=== PATIENT | female | born 1995 | race Caucasian/White ===

== ENCOUNTER → 2021-11-06 11:43 | Outpatient (BNVA) | payer OTHER, SELFPAY | PROVIDERS: PCP Nurse Practitioner Family; Visit Provider Physician Assistant Surgical | DX: Z13.89 Encounter for screening for other disorder (principal) ==

== ENCOUNTER → 2021-11-08 14:05 | Outpatient (BNVA) | payer OTHER, SELFPAY | PROVIDERS: PCP Nurse Practitioner Family; Visit Provider Physician Assistant Surgical | DX: Z13.89 Encounter for screening for other disorder (principal) ==

== ENCOUNTER → 2021-11-29 16:30 | Outpatient (BNVA) | payer OTHER, SELFPAY | PROVIDERS: PCP Nurse Practitioner Family; Visit Provider Counselor Mental Health | DX: F33.0 Major depressive disorder, recurrent, mild (principal); E66.01 Morbid (severe) obesity due to excess calories | CPT/HCPCS: 90791 ==

== ENCOUNTER 2021-12-03 06:48 | Outpatient (REF) | payer OTHER, SELFPAY ==
--- NOTE | ~2021-12-03 | XR_ITS ---
EXAMINATION: XR CHEST CLINICAL INFORMATION: Obesity COMPARISON: None TECHNIQUE: 2 views of the chest were obtained. FINDINGS: No significant abnormality is noted involving the heart, lungs, mediastinum, bony thorax or soft tissues. XR/XR chest 2V IMPRESSION: Unremarkable examination.
--- NOTE | 2021-12-03 06:55 | ECG_ITS ---
Test Reason : e66.01 Blood Pressure : / mmHG Vent. Rate : 076 BPM Atrial Rate : 076 BPM P-R Int : 144 ms QRS Dur : 086 ms QT Int : 374 ms P-R-T Axes : 035 003 015 degrees QTc Int : 420 ms Normal sinus rhythm Normal ECG No previous ECGs available Referred By: Lasha Robles Electronically Signed By:KIEL SIDDIQUI
[2021-12-03 07:15] LABS: MANUAL DIFF FLAG NO
[2021-12-03 07:40] LABS: Basophils Percent Auto 0.5 % (0-2); Eosinophils Absolute Auto 0.2 X10*3/uL (0.0-0.4); Eosinophils Percent Auto 2.7 % (0-4); Hematocrit 40.7 % (37.0-47.0); Hemoglobin 13.6 g/dl (12.0-16.0); Imm Gran Abs Auto 0.04 X10*3/uL (0.00-0.03); Imm Gran Pct Auto 0.5 % (0.0-0.4); Lymphocytes Absolute Auto 2.1 X10*3/uL (1.2-4.9); Lymphocytes Percent Auto 27.1 % (20-40); Mean Corpuscular HGB Conc 33.4 g/dl (31.0-35.0); Mean Corpuscular Hemoglobin 29.9 pg (27.0-33.0); Mean Corpuscular Volume 89.5 fL (80.0-98.0); Mean Platelet Volume 11.2 fL (9.4-12.3); Monocytes Absolute Auto 0.5 X10*3/uL (0.1-1.2); Monocytes Percent Auto 6.9 % (2-11); Neutrophils Absolute Auto 4.8 x10*3/uL (2.0-8.3); Neutrophils Percent Auto 62.3 % (45-73); Platelet Count 211 X10*3/uL (160-400); Red Blood Count 4.55 X10*6/uL (4.20-5.50); Red Cell Distribution Width 13.3 % (11.0-16.0); White Blood Count 7.7 X10*3/uL (4.8-10.8)
[2021-12-03 07:57] LABS: Estimated Average Glucose 88 mg/dL; Hemoglobin A1c % 4.7 %
[2021-12-03 08:45] LABS: Ferritin 97 ng/mL (10-122); TSH reflex Free T4 8.83 uIU/mL (0.32-4.0); Vitamin D 25-OH Total 13.1 ng/mL (>30)
[2021-12-03 08:46] LABS: Alanine Aminotransferase 34 U/L (0-31); Alkaline Phosphatase 85 U/L (39-117); Anion Gap 13 (12-20); Aspartate Amino Transferase 19 U/L (5-31); Bilirubin Total 0.5 mg/dL (0.0-1.0); Blood Urea Nitrogen 13 mg/dL (9-16); C Reactive Protein 0.98 mg/dL (< or = 0.50); Calcium 9.5 mg/dL (8.4-10.2); Carbon Dioxide 25 mmol/L (22-29); Chloride 106 mmol/L (96-108); Cholesterol 136 mg/dL; Estimated Glomerular Filt Rate > 60; Glucose Random 67 mg/dL (60-115); HDL Cholesterol 34 mg/dL; Iron 51 mcg/dL (30-160); LDL Cholesterol Calculated 84 mg/dl; Percent Iron Saturation 17 % (15-50); Potassium 4.2 mmol/L (3.3-5.1); Sodium 140 mmol/L (135-145); Total Iron Binding Capacity 299 mcg/dL (228-428); Total Protein 6.9 g/dL (6.5-8.0); Triglycerides 91 mg/dL; Unsaturated Iron Binding 248 ug/dL
[2021-12-03 09:19] LABS: Free T4 (Free Thyroxine) 0.92 ng/dL (0.71-1.85); Insulin 14 uU/mL (2-29)
[2021-12-03 09:27] LABS: Folate 11.9 ng/mL (> or = 4.0); Vitamin B12 407 pg/mL (200-900)
[2021-12-04 10:43] LABS: H Pylori Breath Test Negative (Negative)
[2021-12-04 18:01] LABS: Calcium (PTHI) 9.2 mg/dL (8.6-10.2); PTHI 71 pg/mL (16-77)
[2021-12-06 04:06] LABS: Zinc 95 mcg/dL (60-130)
[2021-12-08 00:52] LABS: Vitamin A 34 mcg/dL (38-98)
[2021-12-08 13:26] LABS: Vitamin B1 9 nmol/L (8-30)
== END 2021-12-03 06:49 | disposition home or self-care (01) ==
LOC: HO.XRAY 06:48
PROVIDERS: PCP Nurse Practitioner Family; Visit Provider Physician Assistant Surgical
DX: Z01.818 Encounter for other preprocedural examination (principal); E66.01 Morbid (severe) obesity due to excess calories
CPT/HCPCS: 36415; 71046; 80053; 80061; 82306; 82607; 82728; 82746; 83013; 83036; 83525; 83540; 83970; 84425; 84439; 84443; 84590; 84630; 85025; 86140; 93005

== ENCOUNTER → 2021-12-10 08:28 | Outpatient (BNVA) | payer OTHER, SELFPAY | PROVIDERS: PCP Nurse Practitioner Family; Visit Provider Dietitian, Registered | DX: E66.01 Morbid (severe) obesity due to excess calories (principal) | CPT/HCPCS: 97802 ==

== ENCOUNTER → 2021-12-13 16:45 | Outpatient (BNVA) | payer OTHER, SELFPAY | PROVIDERS: PCP Nurse Practitioner Family; Visit Provider Counselor Mental Health | DX: Z13.89 Encounter for screening for other disorder (principal) ==

== ENCOUNTER 2022-01-07 09:03 | Outpatient (REF) | payer OTHER, SELFPAY | END 2022-01-07 09:04 | disposition home or self-care (01) | LOC: HO.XRAY 09:03 | PROVIDERS: Visit Provider Surgery | DX: Z13.89 Encounter for screening for other disorder (principal) ==

== ENCOUNTER 2022-01-07 09:17 | Outpatient (REF) | payer OTHER, SELFPAY ==
--- NOTE | ~2022-01-07 | US_ITS ---
EXAMINATION: US COMPLETE ABDOMEN WITH LIVER ELASTOGRAPHY CLINICAL INFORMATION: Morbid to severe obesity. COMPARISON: None. TECHNIQUE: Real-time imaging of the abdominal viscera. Noninvasive ultrasound liver fibrosis assessment is performed using Kameron ElastPQ point quantification shear wave elastography (2D-SWE) with a C5-2 MHz transducer. Multiple elastography samples are obtained. FINDINGS: PANCREAS: The visualized pancreatic head and body are normal in appearance. The body and the tail of the pancreas is obscured from visualization by the overlying bowel gas. ABDOMINAL AORTA: The proximal, middle, and distal aortic segments are normal in caliber. The abdominal aorta is limited in visualization. INFERIOR VENA CAVA: Visualized portions are normal. LIVER: The liver demonstrates normal size, contour and echogenicity. No focal lesion or intrahepatic biliary duct dilatation. The right lobe measures 14.0 cm in length. The left lobe measures 10.4 cm in length. Portal flow is hepatopedal. Shear wave liver elastography median stiffness is 1.54 m/s (reference: normal median stiffness is 1.3 m/s or less). IQR/median stiffness to assess sampling precision is 0.09 (reference: good quality data set is IQR/median stiffness of 0.15 or less). GALLBLADDER: Normal. The gallbladder is physiologically distended without evidence of stones, sludge, polyps, wall thickening or pericholecystic fluid. COMMON BILE DUCT: Normal in caliber measuring 0.3 cm in diameter. RIGHT KIDNEY: Normal. No hydronephrosis. No renal calculi or focal parenchymal lesions. The kidney measures 10.3 cm in maximum dimension. LEFT KIDNEY: Normal. No hydronephrosis. No renal calculi or focal parenchymal lesions. The kidney measures 11.5 cm in maximum dimension. SPLEEN: Normal. The spleen measures 11.2 cm in maximum dimension. FREE FLUID: None. US/US abdomen comp w elastography IMPRESSION: 1. Hepatic steatosis without focal lesion. Rest of the abdominal ultrasound is unremarkable. Suboptimal visualization of the abdominal aorta and body and the tail of pancreas. 2. Liver elastography: Median liver stiffness 1.54 m/s corresponding to cACLD (ruled out ). REFERENCE: Society of Radiologists in Ultrasound Liver Stiffness Thresholds (2020): LIVER STIFFNESS THRESHOLDS: *Liver Stiffness equal or less than 1.3 m/s: High probability of being normal. *Liver Stiffness less than 1.7 m/s: In the absence of other known clinical signs, rules out compensated advanced chronic liver disease. *Liver Stiffness 1.7-2.1 m/s: Suggestive of compensated advanced chronic liver disease but need further test for confirmation. *Liver Stiffness over 2.1 m/s: Rules in compensated advanced chronic liver disease. *Liver Stiffness over 2.4 m/s: Suggestive of clinically significant portal hypertension. QUALITY OF DATA SET: *IQR/Median value equal or less than 0.15 implies a quality data set. *IQR/Median value over 0.15 implies a poor quality data set. SIGNIFICANT CHANGE FROM PRIOR EXAM: Significant change if liver stiffness measurement is 10% or greater from prior exam. OTHER CONSIDERATIONS: The stage of liver fibrosis may be overestimated in the setting of acute hepatitis, liver inflammation, elevated liver function tests, hepatic vascular congestion, obstructive cholestasis, non-fasting state, and infiltrative diseases such as amyloidosis and lymphoma. In some patients with NAFLD, the liver stiffness thresholds for compensated advanced chronic liver disease may be lower. In causes other than viral hepatitis and NAFLD, liver stiffness thresholds are not well established.
--- NOTE | ~2022-01-07 | FL_ITS ---
EXAMINATION: XR FLUOROSCOPY UPPER GI WITH AIR CLINICAL INFORMATION: Obesity COMPARISON: None TECHNIQUE: Upper GI was performed using thin and thick barium and effervescent granules FINDINGS: Esophageal motility is normal. No hernia or reflux is seen. The stomach and duodenum are normal-appearing. No fold thickening, mass, ulcer or stricture is seen. FLUOROSCOPY TIME: 0.6 minutes DOSE AREA PRODUCT: 6 starks per centimeter squared. 18 saved fluoroscopic images. FL/FL upper GI w air IMPRESSION: Unremarkable examination.
== END 2022-01-07 09:18 | disposition home or self-care (01) ==
LOC: HO.US 09:17
PROVIDERS: Visit Provider Surgery
DX: Z01.818 Encounter for other preprocedural examination (principal); E66.01 Morbid (severe) obesity due to excess calories
CPT/HCPCS: 74246; 76705; 76981

== ENCOUNTER 2022-04-19 07:00 | Outpatient (REF) | payer OTHER, SELFPAY ==
[2022-04-19 07:20] LABS: MANUAL DIFF FLAG NO
[2022-04-19 07:48] LABS: Basophils Absolute Auto 0.1 X10*3/uL (0.0-0.2); Basophils Percent Auto 0.5 % (0-2); Eosinophils Absolute Auto 0.3 X10*3/uL (0.0-0.4); Eosinophils Percent Auto 2.8 % (0-4); Hematocrit 40.8 % (37.0-47.0); Hemoglobin 12.9 g/dl (12.0-16.0); Imm Gran Abs Auto 0.02 X10*3/uL (0.00-0.03); Imm Gran Pct Auto 0.2 % (0.0-0.4); Lymphocytes Absolute Auto 2.6 X10*3/uL (1.2-4.9); Mean Corpuscular HGB Conc 31.6 g/dl (31.0-35.0); Mean Corpuscular Hemoglobin 28.2 pg (27.0-33.0); Mean Corpuscular Volume 89.1 fL (80.0-98.0); Mean Platelet Volume 10.9 fL (9.4-12.3); Monocytes Absolute Auto 0.6 X10*3/uL (0.1-1.2); Neutrophils Absolute Auto 5.7 x10*3/uL (2.0-8.3); Neutrophils Percent Auto 62.5 % (45-73); Platelet Count 267 X10*3/uL (160-400); Red Blood Count 4.58 X10*6/uL (4.20-5.50); Red Cell Distribution Width 13.5 % (11.0-16.0); White Blood Count 9.2 X10*3/uL (4.8-10.8)
[2022-04-19 07:53] LABS: Prothrombin Time 11.3 SEC (10.0-13.1)
[2022-04-19 07:56] LABS: Partial Thromboplastin Time 30.5 SEC (26.0-36.4)
[2022-04-19 07:59] LABS: Estimated Average Glucose 94 mg/dL; Hemoglobin A1c % 4.9 %
[2022-04-19 08:15] LABS: Alanine Aminotransferase 17 U/L (0-31); Albumin Level 3.7 g/dL (3.5-5.0); Alkaline Phosphatase 76 U/L (39-117); Anion Gap 13 (12-20); Aspartate Amino Transferase 18 U/L (5-31); Bilirubin Total 0.3 mg/dL (0.0-1.0); Blood Urea Nitrogen 16 mg/dL (9-16); Calcium 8.9 mg/dL (8.4-10.2); Carbon Dioxide 26 mmol/L (22-29); Chloride 105 mmol/L (96-108); Cholesterol 182 mg/dL; Estimated Glomerular Filt Rate > 60; Glucose Random 87 mg/dL (60-115); HDL Cholesterol 47 mg/dL; LDL Cholesterol Calculated 110 mg/dl; Potassium 4.4 mmol/L (3.3-5.1); Sodium 140 mmol/L (135-145); Total Protein 6.5 g/dL (6.5-8.0); Triglycerides 129 mg/dL
[2022-04-19 08:19] LABS: Insulin 18 uU/mL (2-29); TSH reflex Free T4 5.46 uIU/mL (0.32-4.0)
[2022-04-19 09:16] LABS: Free T4 (Free Thyroxine) 0.78 ng/dL (0.71-1.85)
== END 2022-04-19 07:01 | disposition home or self-care (01) ==
LOC: HO.LAB 07:00
PROVIDERS: PCP Nurse Practitioner Family; Visit Provider Surgery
DX: E66.9 Obesity, unspecified (principal); Z68.38 Body mass index [BMI] 38.0-38.9, adult; E03.9 Hypothyroidism, unspecified
CPT/HCPCS: 36415; 80053; 80061; 83036; 83525; 84439; 84443; 85025; 85610; 85730; 86140

== ENCOUNTER 2022-04-25 06:07 | Inpatient (IN) | payer OTHER, SELFPAY ==
[2022-04-16 09:29] VITALS: BMI 38.4
--- NOTE | 2022-04-19 22:43 | MHC.SHP ---
Pre-Procedural Eval Section A Date of Service: 04/19/22 The patient is an INPATIENT: No The History & Physical has been completed within 30 days and I have reviewed it.: Yes Section B Chief Complaint: obesity Relevant Family History (Specify if Yes): No Relevant Social History: None Present Medications: None Medical History: No relevant PMH History of Previous Operations: No relevant previous surgery Allergies: Allergies Allergy/AdvReac Type Severity Reaction Status Date / Time No Known Allergies Allergy Verified 04/17/22 11:07 Review of Systems Sugical H&P ROS: Negative: Constitution, Cardiovascular, Respiratory, Neurological, Psychiatric, Hem-Onc, Allergic/Immunologic, Gastrointestinal, Genitourinary, Musculoskeletal, Integumentary, Endocrine and Eyes/Ears/Nose/Throat Exam Surgical H&P Exam: Normal: HEENT, Normal: Heart, Normal: Lungs, Normal: Extremities, Normal: Abdomen, Normal: Skin and Normal: Neurological Plan Diagnosis/Plan: Unchanged I have reviewed the history and physical and performed a pertinent physical examination on my patient. No changes have occurred unless specified.
--- NOTE | 2022-04-24 10:48 | HO.ANESPROP2 ---
Documented by User: Tami Larson NP 04/24/22 10:49 HPI - Anesthesia Eval Consult details Narrative: 26yo F for Gastrectomy Sleeve,EGD,poss diaphragmatic hernia,poss ventral hernia,poss open, PMFSH Active Problems Active Problems: All Active Problems (Updated 04/17/22 @ 11:03 by Gildardo Brush MD) BMI 38.0-38.9,adult (Acute) Morbid obesity (Acute) Hypothyroid (Acute) Depression (Acute) Anxiety (Acute) Major depressive disorder, recurrent, mild (Acute) Vitamin A deficiency (Acute) Vitamin B12 deficiency (Acute) Obesity (BMI 30-39.9) (Acute) Past Medical History Medical History (Updated 04/25/22 @ 10:11 by Gildardo Brush MD) Anxiety and depression Back pain History of kidney stones Hypothyroid Obesity Family History Family History Mother Obesity Father Diabetes Stroke Brother No problems noted. Brother No problems noted. Brother No problems noted. Surgical History Surgical History (Updated 04/25/22 @ 10:10 by Mariangel Wise PA-C) History of lithotripsy Hx of oral surgery Social History Social History Are you a primary health care law specialist to a significant other at home: No Do you presently have visiting nurse or other home services: No Alcohol intake: former Patient Tobacco Use Status: Never used Tobacco Use of substances other than those prescribed or required for medical reasons: No Currently Displaying Signs/Symptoms of Drug Intoxication Withdrawal: No Have you been hit, kicked, punched, or otherwise hurt by someone within the past year? If so, by whom?: No Are you DNR?: No Advance Directives: No Advance Directives Information Provided: Yes (Mailed w/ pre-op instructions) Advance Directives on File: No Recently lost weight without trying: No How much weight loss: 34pounds or more Eating poorly because of decreased appetite: No Nutrition screen score: 4 Nutrition Risks: No Nutritional Risk Patient : No FDLMP: 3 weeks ago : No Poor oral hygiene: No (Capped teeth- Front upper 4) Meds Allergies Allergy/AdvReac Type Severity Reaction Status Date / Time No Known Allergies Allergy Verified 04/17/22 11:07 Home Medications Medication Instructions Recorded Confirmed Last Taken Type bupropion HCl 150 mg 24 hr tablet, 150 mg PO DAILY 11/06/21 04/17/22 04/23/22 History extended release sertraline 25 mg tablet 25 mg PO DAILY 11/06/21 04/17/22 04/23/22 History ethynodiol diacetate-ethinyl 1 tab PO DAILY 02/04/22 04/17/22 04/17/22 History estradiol 1 mg-50 mcg tablet (Kelnor) levothyroxine 100 mcg tablet 1 tab PO DAILY 04/25/22 04/25/22 04/25/22 History Exam Exam Date and Time: April 24, 2022 1048 Height,Weight and Vital Signs: Height 5 ft 4 in Weight 101.605 kg Pertinent Lab Results Pertinent Lab Results: Laboratory Tests 04/19/22 07:15 Blood Type A Positive Antibody Screen NEGATIVE Laboratory Tests 04/19/22 04/19/22 07:19 07:19 WBC 9.2 Hgb 12.9 Hct 40.8 Plt Count 267 D Sodium 140 Potassium 4.4 Chloride 105 Carbon Dioxide 26 BUN 16 Creatinine 0.86 Narrative Narrative: EKG 11/2021 Vent. Rate : 076 BPM ? ? Atrial Rate : 076 BPM ?? P-R Int : 144 ms? QRS Dur : 086 ms ? ? QT Int : 374 ms ? ? ? P-R-T Axes : 035 003 015 degrees ?? QTc Int : 420 ms ? Normal sinus rhythm Normal ECG No previous ECGs available Assessment and Plan Assessment Anesthesia Assessment: Chart Reviewed Documented by User: Timothy Eli MD 04/25/22 15:41 [facility] Past Medical History Medical History (Updated 04/25/22 @ 10:11 by Gildardo Brush MD) Anxiety and depression Back pain History of kidney stones Hypothyroid Obesity Functional capacity: independent ambulation Family History Family History Mother Obesity Father Diabetes Stroke Brother No problems noted. Brother No problems noted. Brother No problems noted. Family history of problems with anesthesia: No Surgical History Surgical History (Updated 04/25/22 @ 10:10 by Mariangel Wise PA-C) History of lithotripsy Hx of oral surgery History of Problems with Anesthesia: No Social History Social History Are you a primary health care law specialist to a significant other at home: No Do you presently have visiting nurse or other home services: No Alcohol intake: former Patient Tobacco Use Status: Never used Tobacco Use of substances other than those prescribed or required for medical reasons: No Currently Displaying Signs/Symptoms of Drug Intoxication Withdrawal: No Have you been hit, kicked, punched, or otherwise hurt by someone within the past year? If so, by whom?: No Are you DNR?: No Advance Directives: No Advance Directives Information Provided: Yes (Mailed w/ pre-op instructions) Advance Directives on File: No Recently lost weight without trying: No How much weight loss: 34pounds or more Eating poorly because of decreased appetite: No Nutrition screen score: 4 Nutrition Risks: No Nutritional Risk Patient : No FDLMP: 3 weeks ago : No Poor oral hygiene: No (Capped teeth- Front upper 4) Meds Allergies Allergy/AdvReac Type Severity Reaction Status Date / Time No Known Allergies Allergy Verified 04/17/22 11:07 Home Medications Medication Instructions Recorded Confirmed Last Taken Type bupropion HCl 150 mg 24 hr tablet, 150 mg PO DAILY 11/06/21 04/17/22 04/23/22 History extended release sertraline 25 mg tablet 25 mg PO DAILY 11/06/21 04/17/22 04/23/22 History ethynodiol diacetate-ethinyl 1 tab PO DAILY 02/04/22 04/17/22 04/17/22 History estradiol 1 mg-50 mcg tablet (Kelnor) levothyroxine 100 mcg tablet 1 tab PO DAILY 04/25/22 04/25/22 04/25/22 History Exam Airway Mallampati Class: III TM Dist: >3cm Neck ROM: Full Loose/Missing/Broken Teeth: Yes (Caps ) Heart: S1,S2 Lungs: b/l breath sounds Assessment and Plan Assessment Anesthesia Assessment: Anesthesia Plan Discussed Final Anesthetic Review Family History of Problems with Anesthesia: No History of Problems with Anesthesia: No NPO: Yes ASA Class: II Final Preanesthetic Review: Meds/Allgs Chart Reviewed, Consent Obtained/Reviewed and Anes Risks/Benef Reviewed Patient Risk: Intermediate Procedure Risk: Intermediate Anesthetic Plan Anesthetic Plan: GA Disposition: Standard PACU
[2022-04-25] VITALS (11 sets, daily range): BP systolic 121–151; BP diastolic 59–99; PULSE 65–81; RESP 15–18; TEMP 36.1–37.2; O2SAT 97–100
[2022-04-25 06:27] LABS: UPreg QC Valid YES; Urine Pregnancy NEGATIVE (NEGATIVE)
--- OUTSIDE RECORDS SUMMARY | 2022-04-25 06:36 | XMS_ITS | Continuity of Care Document ---
:1995 Author Organization [facility] Adult Address [address] [place] [address]- Care Team Providers Name Role Phone Aaron CAREY, Olga Dos Santos Primary Care Physician Encounter [facility] Date(s): 02/25/22 - 03/04/22 [facility] Adult [address] [place] [address]- Encounter Diagnosis Depression, major, recurrent (Discharge Diagnosis) - 02/25/22 Hypothyroidism (Discharge Diagnosis) - 02/25/22 Attending Physician: Olga Walker NP Allergies, Adverse Reactions, Alerts No Known Allergies Immunizations Given and Recorded Vaccine Date Status Refusal Reason SARS-CoV-2 (COVID-19) mRNA-1273 vaccine 08/08/21 Recorded SARS-CoV-2 (COVID-19) mRNA-1273 vaccine1 10/22/20 Recorde d SARS-CoV-2 (COVID-19) mRNA BNT-162b2 vac2 09/22/20 Record ed influenza virus vaccine, inactivated 05/11/18 Given tetanus/diphtheria/pertussis, acel(Tdap) 02/29/16 Given tetanus/diphtheria/pertussis, acel(Tdap)3 02/27/06 Record ed Meningococcal Conjugate Vaccine4 03/03/07 Recorded Measles/Mumps/Rubella Virus Vaccine5 03/02/98 Recorded Measles/Mumps/Rubella Virus Vaccine6 03/14/95 Recorded Varicella Virus Vaccine7 10/27/97 Recorded hepatitis B pediatric vaccine8 04/08/94 Recorded hepatitis B pediatric vaccine9 93 Recorded hepatitis B pediatric kfyitol06 93 Recorded hepatitis B adult djnawju86, 12 93 Recorded 1Result Comment: left deltoid lot [id number] exp 03-26-2021 [id number] Comment: Covid-19 mRNA lot [id number] Moderna exp [id number] [facility] left [id number] Comment: [02/14/2015] [place] [id number] Comment: [02/14/2015] [place] [id number] Comment: [02/14/2015] [place] [id number] Comment: [02/14/2015] [place] [id number] Comment: [02/14/2015] [place] [id number] Comment: [02/14/2015] [place] PEDI9 Result Comment: [02/14/2015] [place] [id number] Comment: [02/14/2015] [place] [id number] Comment: ENTERED IN [id number] Comment: [02/14/2015] [facility] Medications Kelnor 1 mg-35 mcg oral tablet See Instructions, TAKE 1 TABLET BY MOUTH EVERY DAY, # 84 tablet, 4 Refills, 01/09/22 14:04:00 EDT, [facility]/pharmacy #[id number], TAKE 1 TABLET BY MOUTH EVERY DAY, 162, cm, 01/09/22 13:51:00 EDT, Height, 112.8, kg, 12/03/21 10:32:00 EDT, Dry Weight Start Date: 01/09/22 Status: Orderedlevothyroxine 0.1 mg oral tablet 1 tablet, By Mouth, Daily, X7 WEEK(S. REPEAT TSH LEVEL IN 6 WEEKS, # 30 tablet, 1 Refills, [facility] [id number], 162, cm, 01/09/22 13:51:00 EDT, Height, 112.8, kg, 12/03/21 10:32:00 EDT, Dry Weight Start Date: 02/11/22 Status: Orderedsertraline 25 mg oral tablet 1 tablet, By Mouth, Daily, # 90 tablet, 0 Refills, [facility] STORE [id number], 162, cm, 01/09/22 13:51:00 EDT, Height, 112.8, kg, 12/03/21 10:32:00 EDT, Dry Weight Start Date: 01/22/22 Status: OrderedWellbutrin XL 150 mg/24 hours oral tablet, extended release 1 tablet = 150 mg, By Mouth, Every 24 hours, repalce 300mg, # 30 tablet, 6 Refills, Maintenance, 02/25/22 8:22:00 EDT, ER Tablet, [id number], Partial fill upon patient request if the prescription is for a schedule II opioid drug., 162, cm, .. Start Date: 02/25/22 Status: Ordered Problem List Condition Effective Dates Status Health Status Informant Obesity with body mass index of 30.0 - Active 39.9(Confirmed) Hypothyroidism(Confirmed) Active Surveillance for control, oral Active contraceptives(Confirmed) PCOS (polycystic ovarian Active syndrome)(Confirmed) Depression, major, Active recurrent(Confirmed) Amenorrhea, secondary(Confirmed) Active Severe obesity(Confirmed) Active Diagnosis Diagnosis Type Effective Dates Health Clinical Infor mant Status Service Depression, major, Discharge 02/25/22 recurrent Diagnosis Hypothyroidism Discharge 02/25/22 Diagnosis Vital Signs Most recent to oldest [Reference Range]: 1 Height 162 cm (02/25/22 7:59 AM) Social History Social History Type Response Smoking Status Never smoker entered on: 01/25/15 Sex
--- OUTSIDE RECORDS SUMMARY | 2022-04-25 06:36 | XMS_ITS | Continuity of Care Document ---
:1995 Author Organization [facility] Adult Address [address] [place] [address]- Care Team Providers Name Role Phone Aaron CAREY, Olga Dos Santos Primary Care Physician Encounter [facility] Date(s): 08/17/20 - 09/16/20 [facility] Adult [address] [place] [address]- Attending Physician: Romana Ricardo Admitting Physician: AdmRomana bradley Referring Physician: AdmtrRomana Allergies, Adverse Reactions, Alerts Substance Reaction Severity Status NKA Active Immunizations Given and Recorded Vaccine Date Status Refusal Reason influenza virus vaccine, inactivated 05/11/18 Given tetanus/diphtheria/pertussis, acel(Tdap) 02/29/16 Given tetanus/diphtheria/pertussis, acel(Tdap)1 02/27/06 Record ed Meningococcal Conjugate Vaccine2 03/03/07 Recorded Measles/Mumps/Rubella Virus Vaccine3 03/02/98 Recorded Measles/Mumps/Rubella Virus Vaccine4 03/14/95 Recorded Varicella Virus Vaccine5 10/27/97 Recorded hepatitis B pediatric vaccine6 04/08/94 Recorded hepatitis B pediatric vaccine7 93 Recorded hepatitis B pediatric vaccine8 93 Recorded hepatitis B adult vaccine9, 10 93 Recorded 1Result Comment: [02/14/2015] [facility] [id number] Comment: [02/14/2015] [facility] [id number] Comment: [02/14/2015] DRE [id number] Comment: [02/14/2015] [facility] [id number] Comment: [02/14/2015] DRE [id number] Comment: [02/14/2015] DRE MILLERI7Result Comment: [02/14/2015] DRE MILLERI8Result Comment: [02/14/2015] DRE MERIDA9Result Comment: ENTERED IN [id number] Comment: [02/14/2015] DRE MERIDA Medications buPROPion 150 mg/24 hours (XL) oral tablet, extended release 1 tablet = 150 mg, By Mouth, Every 24 hours, # 30 tablet, 6 Refills, Soft Stop, 07/18/20 12:48:00 EST, [id number], 1 tablet By Mouth Every 24 hours,x30 days, 162, cm, 02/19/19 13:26:00 EDT, Height Start Date: 07/18/20 Stop Date: 02/13/21 Status: Orderedlevothyroxine 0.088 mg oral tablet 1 tablet, By Mouth, Daily, schedule physical with Olga Walker [employer] for refills, # 30 tablet, 0 Refills, Maintenance, 07/18/20 16:18:00 EST, [id number], 162, cm, 02/19/19 13:26:00 EDT, Height Start Date: 07/18/20 Stop Date: 10/24/20 Status: Orderedsertraline 25 mg oral tablet 1 tablet = 25 mg, By Mouth, Daily, # 30 tablet, 6 Refills, Soft Stop, 07/18/20 12:48:00 EST, [id number], 162, cm, 02/19/19 13:26:00 EDT, Height Start Date: 07/18/20 Stop Date: 02/13/21 Status: Ordered Problem List Condition Effective Dates Status Health Status Informant Obesity with body mass index of 30.0 - Active 39.9(Confirmed) Hypothyroidism(Confirmed) Active Kidney stone(Confirmed) Active Surveillance for control, oral Active contraceptives(Confirmed) PCOS (polycystic ovarian Active syndrome)(Confirmed) Depression, major, Active recurrent(Confirmed) Amenorrhea, secondary(Confirmed) Active Social History Social History Type Response Smoking Status Never smoker entered on: 01/25/15 Sex
--- OUTSIDE RECORDS SUMMARY | 2022-04-25 06:36 | XMS_ITS | Continuity of Care Document ---
:1995 Author Organization [facility] Adult Address [address] [place] [address]- Care Team Providers Name Role Phone Aaron CAREY, Olga Dos Santos Primary Care Physician Encounter [facility] Date(s): 10/24/21 - 10/31/21 [facility] Adult [address] [place] [address]- Encounter Diagnosis Depression, major, recurrent (Discharge Diagnosis) - 10/24/21 Hypothyroidism (Discharge Diagnosis) - 10/24/21 Attending Physician: Olga Walker NP Referring Physician: Alvarez Sorenson MD Allergies, Adverse Reactions, Alerts No Known Allergies [...] pediatric vaccine9 93 Recorded hepatitis B pediatric [id number] 93 Recorded hepatitis B adult egteyyo31, 12 93 Recorded 1Result Comment: left deltoid lot [id number] exp 03-26-2021 [id number] Comment: Covid-19 mRNA lot [id number] Moderna exp [id number] [facility] left [id number] Comment: [02/14/2015] [place] [id number] Comment: [02/14/2015] [place] [id number] Comment: [02/14/2015] [place] [id number] Comment: [02/14/2015] [place] [id number] Comment: [02/14/2015] [place] [id number] Comment: [02/14/2015] [place] [facility]I9 Result Comment: [02/14/2015] [place] [id number] Comment: [02/14/2015] [place] [id number] Comment: ENTERED IN [id number] Comment: [02/14/2015] [facility] Medications buPROPion 150 mg/24 hours (XL) oral tablet, extended release 1 tablet = 150 mg, By Mouth, Every 24 hours, # 30 tablet, 6 Refills, Soft Stop, 08/24/21 7:17:00 EST, [id number], 1 tablet By Mouth Every 24 hours,x30 days, 162, cm, 08/24/21 7:00:00 EST, Height Start Date: 08/24/21 Stop Date: 03/22/22 Status: Orderedlevothyroxine 75 mcg (0.075 mg) oral tablet 1 tablet = 75 mcg, By Mouth, Daily, repalce 50mcg, # 30 tablet, 1 Refills, Maintenance, 10/24/21 7:19:00 EDT, Tablet, [id number], Partial fill upon patient request if the prescription is for a schedule II opioid drug., 162, cm, 10/24/21 7:02:0... Start Date: 10/24/21 Stop Date: 12/23/21 Status: Orderedsertraline 25 mg oral tablet 1 tablet = 25 mg, By Mouth, Daily, # 30 tablet, 2 Refills, Maintenance, 10/24/21 7:18:00 EDT, Tablet, [id number], Partial fill upon patient request if the prescription is for a schedule II opioid drug., 162, cm, 10/24/21 7:02:00 EDT, Height Start Date: 10/24/21 Status: Ordered Problem List Condition Effective Dates Status Health Status Informant Obesity with body mass index of 30.0 - Active 39.9(Confirmed) Hypothyroidism(Confirmed) Active Kidney stone(Confirmed) Active Surveillance for control, oral Active contraceptives(Confirmed) PCOS (polycystic ovarian Active syndrome)(Confirmed) Depression, major, Active recurrent(Confirmed) Amenorrhea, secondary(Confirmed) Active Severe obesity(Confirmed) Active Diagnosis Diagnosis Type Effective Dates Health Clinical Infor mant Status Service Depression, major, Discharge 10/24/21 recurrent Diagnosis Hypothyroidism Discharge 10/24/21 Diagnosis Vital Signs Most recent to oldest [Reference Range]: 1 Height 162 cm (10/24/21 7:02 AM) Social History Social History Type Response Smoking Status Never smoker entered on: 01/25/15 Sex
--- OUTSIDE RECORDS SUMMARY | 2022-04-25 06:36 | XMS_ITS | Continuity of Care Document ---
:1995 Author Organization [facility] Address [address] [place] [address]- Care Team Providers Name Role Phone Aaron CAREY, Olga Dos Santos Primary Care Physician [facility]counter [facility] Date(s): 12/03/21 - 01/02/22 [facility] [address] [place], [place] [address] Allergies, Adverse Reactions, Alerts No Known Allergies [...] pediatric vaccine9 93 Recorded hepatitis B pediatric crjgnot33 93 Recorded hepatitis B adult uvdgplt54, 12 93 Recorded 1Result Comment: left deltoid lot [id number] exp 03-26-2021 sfa9Fkdaeb Comment: Covid-19 mRNA lot [id number] Moderna exp [facility] left aesklzc4Ndafsu Comment: [02/14/2015] [place] PFMZ4Gyrvfp Comment: [02/14/2015] [place] QYIJ0Obifqh Comment: [02/14/2015] [place] KAIM0Zcfwzy Comment: [02/14/2015] [place] NHWX0Cagwfc Comment: [02/14/2015] [place] INNM8Cqrtlv Comment: [02/14/2015] [place] PEDI9 Result Comment: [02/14/2015] [place] GOLE65Looufy Comment: [02/14/2015] [place] SGMP42Rbbqra Comment: ENTERED IN BYMCY85Rxtxip Comment: [02/14/2015] [facility] Medications Kelnor 1 mg-35 mcg oral tablet See Instructions, TAKE 1 TABLET BY MOUTH EVERY DAY, # 28 tablet, 0 Refills, [id number], 28, TAKE 1 TABLET BY MOUTH EVERY DAY, 162, cm, 12/26/21 8:04:00 EDT, Height, 112.8, kg, 12/03/21 10:32:00 EDT, Dry Weight Start Date: 12/30/21 Status: Orderedlevothyroxine 0.088 mg oral tablet 1 tablet = 88 mcg, By Mouth, Daily, # 49 tablet, 0 Refills, Maintenance, 12/26/21 7:22:00 EDT, [id number], Partial fill upon patient request if the prescription is for a schedule II opioid drug., 162, cm, 12/26/21 7:02:00 EDT, Height, 112.8, k... Start Date: 12/26/21 Stop Date: 02/13/22 Status: Orderedsertraline 25 mg oral tablet 1 tablet = 25 mg, By Mouth, Daily, # 30 tablet, 2 Refills, Maintenance, 10/24/21 7:18:00 EDT, Tablet, [id number], Partial fill upon patient request if the prescription is for a schedule II opioid drug., 162, cm, 10/24/21 7:02:00 EDT, Height Start Date: 10/24/21 Status: OrderedWellbutrin XL 300 mg/24 hours oral tablet, extended release 1 tablet = 300 mg, By Mouth, Every 24 hours, repalce 150mg, # 30 tablet, 1 Refills, Maintenance, 12/26/21 7:26:00 EDT, [facility]/pharmacy #[id number], Partial fill upon patient request if the prescription is for aschedule II opioid drug., 162, cm, 12/26/21 7:02:... Start Date: 12/26/21 Stop Date: 02/24/22 Status: Ordered Problem List Condition Effective Dates Status Health Status Informant Obesity with body mass index of 30.0 - Active 39.9(Confirmed) Hypothyroidism(Confirmed) Active Kidney stone(Confirmed) Active Surveillance for control, oral Active contraceptives(Confirmed) PCOS (polycystic ovarian Active syndrome)(Confirmed) Depression, major, Active recurrent(Confirmed) Amenorrhea, secondary(Confirmed) Active Severe obesity(Confirmed) Active Social History Social History Type Response Smoking Status Never smoker entered on: 01/25/15 Sex
--- OUTSIDE RECORDS SUMMARY | 2022-04-25 06:36 | XMS_ITS | Continuity of Care Document ---
:1995 Author Organization [facility] Address [address] [place] [address]- Care Team Providers Name Role Phone Aaron CAREY, Olga Dos Santos Primary Care Physician Encounter [facility] Date(s): 01/16/22 - 02/15/22 [facility] [address] [place] [address]- Allergies, Adverse Reactions, Alerts No Known Allergies [...] pediatric vaccine9 93 Recorded hepatitis B pediatric awdbkws66 93 Recorded hepatitis B adult dsoxfgm38, 12 93 Recorded 1Result Comment: left deltoid lot [id number] exp 03-26-2021 ffl7Fdiyim Comment: Covid-19 mRNA lot [id number] Moderna exp [id number] [facility] left vrhoqhk1Unhguz Comment: [02/14/2015] [place] MILLERI4Result Comment: [02/14/2015] [place] QOHA8Oyjutd Comment: [02/14/2015] [place] LLEN7Puhmrq Comment: [02/14/2015] [place] RVZW3Jjisns Comment: [02/14/2015] [place] PVPL4Wnxpuw Comment: [02/14/2015] [place] [facility]9 Result Comment: [02/14/2015] [place] AMTY95Zjpopb Comment: [02/14/2015] [place] XXKG40Dhqpyo Comment: ENTERED IN KOWFM72Dbysja Comment: [02/14/2015] [facility] Medications Kelnor 1 mg-35 mcg oral tablet See Instructions, TAKE 1 TABLET BY MOUTH EVERY DAY, # 84 tablet, 4 Refills, 01/09/22 14:04:00 EDT, [facility]/pharmacy #[id number], TAKE 1 TABLET BY MOUTH EVERY DAY, 162, cm, 01/09/22 13:51:00 EDT, Height, 112.8, kg, 12/03/21 10:32:00 EDT, Dry Weight Start Date: 01/09/22 Status: Orderedlevothyroxine 0.1 mg oral tablet 1 tablet, By Mouth, Daily, X7 WEEK(S. REPEAT TSH LEVEL IN 6 WEEKS, # 30 tablet, 1 Refills, [facility] [id number], 162, cm, 01/09/22 13:51:00 EDT, Height, 112.8, kg, 12/03/21 10:32:00 EDT, Dry Weight Start Date: 02/11/22 Status: Orderedsertraline 25 mg oral tablet 1 tablet, By Mouth, Daily, # 90 tablet, 0 Refills, [id number], 162, cm, 01/09/22 13:51:00 EDT, Height, 112.8, kg, 12/03/21 10:32:00 EDT, Dry Weight Start Date: 01/22/22 Status: OrderedWellbutrin XL 300 mg/24 hours oral tablet, extended release 1 tablet = 300 mg, By Mouth, Every 24 hours, repalce 150mg, # 30 tablet, 1 Refills, Maintenance, 12/26/21 7:26:00 EDT, [id number], Partial fill upon patient [...]
--- OUTSIDE RECORDS SUMMARY | 2022-04-25 06:36 | XMS_ITS | Continuity of Care Document ---
:1995 Author Organization [facility] Address [address] [place] [address]- Care Team Providers Name Role Phone Aaron CAREY, Olga Dos Santos Primary Care Physician Encounter [facility] Date(s): 12/30/21 - 01/29/[address] [address]- Allergies, Adverse Reactions, Alerts No Known Allergies [...] pediatric vaccine9 93 Recorded hepatitis B pediatric rqyejpm17 93 Recorded hepatitis B adult , 12 93 Recorded 1Result Comment: left deltoid lot [id number] exp 03-26-2021 rny8Txsjun Comment: Covid-19 mRNA lot [id number] Moderna exp [facility] left sqmivxy7Dtbtjn Comment: [02/14/2015] [place] QMAU5Pzffte Comment: [02/14/2015] [place] LNIE9Qobxyh Comment: [02/14/2015] [place] XHZQ7Xqstor Comment: [02/14/2015] [place] MSBM6Yqgtor Comment: [02/14/2015] [place] JLPB0Weuaow Comment: [02/14/2015] [place] [facility]I9 Result Comment: [02/14/2015] [place] HEIU67Lluzjj Comment: [02/14/2015] [place] ELJN86Anhtqn Comment: ENTERED IN SRHWQ47Fzpdrp Comment: [02/14/2015] [facility] Medications Kelnor 1 mg-35 mcg oral tablet See Instructions, TAKE 1 TABLET BY MOUTH EVERY DAY, # 84 tablet, 4 Refills, 01/09/22 14:04:00 EDT, [facility]/pharmacy #[id number], TAKE 1 TABLET BY MOUTH EVERY DAY, 162, cm, 01/09/22 13:51:00 EDT, Height, 112.8, kg, 12/03/21 10:32:00 EDT, Dry Weight Start Date: 01/09/22 Status: Orderedlevothyroxine 0.1 mg oral tablet 1 tablet = 100 mcg, By Mouth, Daily, repeat tsh level in 6 weeks, # 49 tablet, 0 Refills, Maintenance, 01/17/22 11:11:00 EDT, Tablet, [id number], Partial fill upon patient request if the prescription is for a schedule II opioid drug., 162, cm,... Start Date: 01/17/22 Stop Date: 03/07/22 Status: Orderedsertraline 25 mg oral tablet 1 tablet, By Mouth, Daily, # 90 tablet, 0 Refills, [id number], 162, cm, 01/09/22 13:51:00 EDT, Height, 112.8, kg, 12/03/21 10:32:00 EDT, Dry Weight Start Date: 01/22/22 Status: OrderedWellbutrin XL 300 mg/24 hours oral tablet, extended release 1 tablet = 300 mg, By Mouth, Every 24 hours, repalce 150mg, # 30 tablet, 1 Refills, Maintenance, 12/26/21 7:26:00 EDT, [id number], Partial fill upon patient request if the [...]
--- OUTSIDE RECORDS SUMMARY | 2022-04-25 06:36 | XMS_ITS | Continuity of Care Document ---
:1995 Author Organization [facility] ic Address [address] [place] [address]- Care Team Providers Name Role Phone Aaron CAREY, Olga Dos Santos Primary Care Physician [place] [facility] Date(s): 01/09/22 - 02/08/[address] [address]- Attending Physician: Romana iRcardo Admitting Physician: AdmRomana bradley Referring Physician: AdmtrRomana Allergies, Adverse Reactions, Alerts No Known Allergies [...] pediatric vaccine9 93 Recorded hepatitis B pediatric wfsytwy81 93 Recorded hepatitis B adult byghjci86, 12 93 Recorded 1Result Comment: left deltoid lot [id number] exp 03-26-2021 yau0Azmkvk Comment: Covid-19 mRNA lot [id number] Noemi exp [id number] [facility] left lkpakjd5Zcjzaa Comment: [02/14/2015] [place] UWCG0Fhclov Comment: [02/14/2015] [place] DUAI0Vidvnc Comment: [02/14/2015] [place] VRVZ9Nzbjyh Comment: [02/14/2015] [place] GAEI2Ikkshj Comment: [02/14/2015] [place] DKTZ6Idkclh Comment: [02/14/2015] [place] PEDI9 Result Comment: [02/14/2015] [place] MZIW24Dctspq Comment: [02/14/2015] [place] DKEQ30Cblyce Comment: ENTERED IN HDYVX31Abmdar Comment: [02/14/2015] [facility] Medications Kelnor 1 mg-35 mcg oral tablet See Instructions, TAKE 1 TABLET BY MOUTH EVERY DAY, # 84 tablet, 4 Refills, 01/09/22 14:04:00 EDT, [facility]/pharmacy #1157, TAKE 1 TABLET BY MOUTH EVERY DAY, 162, cm, 01/09/22 13:51:00 EDT, Height, 112.8, kg, 12/03/21 10:32:00 EDT, Dry Weight Start Date: 01/09/22 Status: Orderedlevothyroxine 0.1 mg oral tablet 1 tablet = 100 mcg, By Mouth, Daily, repeat tsh level in 6 weeks, # 49 tablet, 0 Refills, Maintenance, 01/17/22 11:11:00 EDT, Tablet, [facility]/pharmacy #1157, Partial fill upon patient request if the prescription is for a schedule II opioid drug., 162, cm,... Start Date: 01/17/22 Stop Date: 03/07/22 Status: Orderedsertraline 25 mg oral tablet 1 tablet, By Mouth, Daily, # 90 tablet, 0 Refills, [facility], 162, cm, 01/09/22 13:51:00 EDT, Height, 112.8, kg, 12/03/21 10:32:00 EDT, Dry Weight Start Date: 01/22/22 Status: OrderedWellbutrin XL 300 mg/24 hours oral tablet, extended release 1 tablet = 300 mg, By Mouth, Every 24 hours, repalce 150mg, # 30 tablet, 1 Refills, Maintenance, 12/26/21 7:26:00 EDT, [facility]/pharmacy #[id number], Partial fill upon patient request if the [...]
--- OUTSIDE RECORDS SUMMARY | 2022-04-25 06:36 | XMS_ITS | Continuity of Care Document ---
:1995 Author Organization [facility] Address [address] [place] [address]- Care Team Providers Name Role Phone Aaron CAREY, Olga Dos Santos Primary Care Physician [facility] Date(s): 10/22/21 - 11/21/21 [facility] [address] [place] [address]- Allergies, Adverse Reactions, Alerts No Known Allergies [...] pediatric vaccine9 93 Recorded hepatitis B pediatric 93 Recorded hepatitis B adult klusfqh07, 12 93 Recorded 1Result Comment: left deltoid lot 006B exp 03-26-2021 njf4Vthhke Comment: Covid-19 mRNA lot [id number] Moderna exp [facility] left ooushpu4Aejldy Comment: [02/14/2015] [facility] DITF6Udjhkf Comment: [02/14/2015] [place] GNIO2Cgvblm Comment: [02/14/2015] [place] VMRE6Nmjkqd Comment: [02/14/2015] [place] MZAY2Eamxfn Comment: [02/14/2015] [place] SMEL5Oiyxcz Comment: [02/14/2015] [place] [facility]EDI9 Result Comment: [02/14/2015] [facility] WNMT17Undzwl Comment: [02/14/2015] [facility] PRHH21Yqpysa Comment: ENTERED IN RMBUP31Yakmlq Comment: [02/14/2015] [facility] Medications buPROPion 150 mg/24 hours (XL) [...]
--- OUTSIDE RECORDS SUMMARY | 2022-04-25 06:36 | XMS_ITS | Continuity of Care Document ---
:1995 Author Organization [facility] Address [address] [place] [address]- Care Team Providers Name Role Phone Aaron CAREY, Olga Dos Santos Primary Care Physician [facility]counter [facility] Date(s): 01/16/22 - 02/15/22 [facility] [address] [place] [address]- Allergies, Adverse Reactions, Alerts No Known Allergies [...] pediatric vaccine9 93 Recorded hepatitis B pediatric xynyzmi89 93 Recorded hepatitis B adult viquruj24, 12 93 Recorded 1Result Comment: left deltoid lot 006B exp 03-26-2021 lgz7Fxnipo Comment: Covid-19 mRNA lot [id number] Moderna exp [id number] [facility] left wcfputi3Hrorsh Comment: [02/14/2015] [place] MILLERI4Result Comment: [02/14/2015] [place] KRCB4Dwxkos Comment: [02/14/2015] [place] EVXX0Hhpimp Comment: [02/14/2015] [place] NBOU2Tksycc Comment: [02/14/2015] [place] LYZH9Ztoisn Comment: [02/14/2015] [place] [facility]I9 Result Comment: [02/14/2015] [place] XYFF56Vrndth Comment: [02/14/2015] [place] NJNZ68Jvisln Comment: ENTERED IN RGUIO26Miwtji Comment: [02/14/2015] [facility] Medications Kelnor 1 mg-35 mcg oral tablet See Instructions, TAKE 1 TABLET BY MOUTH EVERY DAY, # 84 tablet, 4 Refills, 01/09/22 14:04:00 EDT, [facility]/pharmacy #[id number], TAKE 1 TABLET BY MOUTH EVERY DAY, 162, cm, 01/09/22 13:51:00 EDT, Height, 112.8, kg, 12/03/21 10:32:00 EDT, Dry Weight Start Date: 01/09/22 Status: Orderedlevothyroxine 0.1 mg oral tablet 1 tablet, By Mouth, Daily, X7 WEEK(S. REPEAT TSH LEVEL IN 6 WEEKS, # 30 tablet, 1 Refills, [facility] [id number], 162, cm, 01/09/22 13:51:00 EDT, Height, 112.8, kg, 12/03/21 10:32:00 EDT, Dry Weight Start Date: 02/11/22 Status: Orderedsertraline 25 mg oral tablet 1 tablet, By Mouth, Daily, # 90 tablet, 0 Refills, [facility], 162, cm, 01/09/22 13:51:00 EDT, Height, 112.8, [...]
--- OUTSIDE RECORDS SUMMARY | 2022-04-25 06:36 | XMS_ITS | Continuity of Care Document ---
:1995 Author Organization [facility] Adult Address [address] [place] [address]- Care Team Providers Name Role Phone Aaron CAREY, Olga Dos Santos Primary Care Physician Encounter [facility] Date(s): 08/24/21 - 08/31/21 [facility] Adult [address] [place] [address]- Encounter Diagnosis Annual physical exam (Discharge Diagnosis) - 08/24/21 Depression, major, recurrent (Discharge Diagnosis) - 08/24/21 Severe obesity (Discharge Diagnosis) - 08/24/21 Low back pain (Discharge Diagnosis) - 08/24/21 Attending Physician: Not on Staff, Attending MD Referring Physician: Olga Walker NP Allergies, Adverse Reactions, Alerts No Known Allergies Immunizations Given and Recorded Vaccine Date Status Refusal Reason SARS-CoV-2 (COVID-19) mRNA-1273 vaccine1 10/22/20 Recorde d [...] pediatric vaccine9 93 Recorded hepatitis B pediatric fejzppu60 93 Recorded hepatitis B adult ehixixg54, 12 93 Recorded 1Result Comment: left deltoid lot 006B exp 9-6-2021 ovj2Cbpljf Comment: Covid-19 mRNA lot [id number] Moderna exp [id number] [facility] left vklilzw2Pithel Comment: [02/14/2015] [place] HFQP8Fasyaa Comment: [02/14/2015] [place] PGNG8Pnkddw Comment: [02/14/2015] [place] PWDQ8Pwhbaf Comment: [02/14/2015] [place] XXLE4Jkhsot Comment: [02/14/2015] [place] VRXS5Ggcyov Comment: [02/14/2015] [place] [facility]I9 Result Comment: [02/14/2015] [place] ZEHK15Ywcglc Comment: [02/14/2015] [place] XKXM58Kpevjx Comment: ENTERED IN YXJDM82Nxvoew Comment: [02/14/2015] [place] [facility] Medications buPROPion 150 mg/24 hours (XL) oral tablet, extended release 1 tablet = 150 mg, By Mouth, Every 24 hours, # 30 tablet, 6 Refills, Soft Stop, 08/24/21 7:17:00 EST, [facility], 1 tablet By Mouth Every 24 hours,x30 days, 162, cm, 08/24/21 7:00:00 EST, Height Start Date: 08/24/21 Stop Date: 03/22/22 Status: Orderedlevothyroxine 0.05 mg oral tablet 1 tablet = 50 mcg, By Mouth, Daily, repeat ths level in 7 weeks, # 30 tablet, 1 Refills, Maintenance, 08/24/21 7:18:00 EST, Tablet, [facility], Partial fill upon patient request if the prescription is for a schedule II opioid drug., 162, cm, 0... Start Date: 08/24/21 Status: Ordered Problem List Condition Effective Dates Status Health Status Informant Obesity with body mass index of 30.0 - Active 39.9(Confirmed) Hypothyroidism(Confirmed) Active Kidney stone(Confirmed) Active Surveillance for control, oral Active contraceptives(Confirmed) PCOS (polycystic ovarian Active syndrome)(Confirmed) Depression, major, Active recurrent(Confirmed) Amenorrhea, secondary(Confirmed) Active Severe obesity(Confirmed) Active Diagnosis Diagnosis Type Effective Dates Health Status Clinical In formant Service Annual physical Discharge 08/24/21 exam Diagnosis Depression, Discharge 08/24/21 major, recurrent Diagnosis Severe obesity Discharge 08/24/21 Diagnosis Low back pain Discharge 08/24/21 Diagnosis Vital Signs Most recent to oldest [Reference Range]: 1 Height 162 cm (08/24/21 7:00 AM) Weight 119.7 kg (08/24/21 7:00 AM) Oxygen Saturation [94-100 %] 100 % (08/24/21 7:00 AM) Pulse Rate [55-90 bpm] 96 bpm *H* (08/24/21 7:00 AM) Body Mass Index [18.5-24.99] 45.61 *>HHI* (08/24/21 7:00 AM) Blood Pressure [90-138/55-84 mm Hg] 112/79 mm Hg (08/24/21 7:00 AM) Temperature [96.8-100.4 DegF] 98.3 DegF (08/24/21 7:00 AM) Blood pressure sites Arm, right (08/24/21 7:00 AM) Temperature Route Oral (08/24/21 7:00 AM) Weight Obtained Via Standing scale (08/24/21 7:00 AM) Social History Social History Type Response Smoking Status Never smoker entered on: 01/25/15 Sex
--- OUTSIDE RECORDS SUMMARY | 2022-04-25 06:36 | XMS_ITS | Continuity of Care Document ---
:1995 Author Organization [facility] Adult Address [address] [place] [address]- Care Team Providers Name Role Phone Aaron CAREY, Olga Dos Santos Primary Care Physician [place] [facility] [place]22 [facility] [address] [place] [address]- Allergies, Adverse Reactions, Alerts No Known Allergies [...] pediatric vaccine9 93 Recorded hepatitis B pediatric vmjimnp52 93 Recorded hepatitis B adult opbelne82, 12 93 Recorded 1Result Comment: left deltoid lot 006B exp 03-26-2021 ztx7Hwhlgw Comment: Covid-19 mRNA lot 027A Moderna exp [id number] [facility] left qxsxqvj4Zuztqp Comment: [02/14/2015] [place] MILLERI4Result Comment: [02/14/2015] [place] GHRJ6Fevwxd Comment: [02/14/2015] [place] BFTV6Cidoqz Comment: [02/14/2015] [place] DKMU3Lwnrrq Comment: [02/14/2015] [place] XGYL0Zuedaw Comment: [02/14/2015] [place] PEDI9 Result Comment: [02/14/2015] [place] YRBJ89Gpcrif Comment: [02/14/2015] [place] MBZJ35Yqwiog Comment: ENTERED IN IEFAY21Oayxik Comment: [02/14/2015] [facility] Medications Kelnor 1 mg-35 mcg oral tablet See Instructions, TAKE 1 TABLET BY MOUTH EVERY DAY, # 84 tablet, 4 Refills, 01/09/22 14:04:00 EDT, [facility], TAKE 1 TABLET BY MOUTH EVERY [...] 1 Refills, Maintenance, 12/26/21 7:26:00 EDT, [id number], Partial fill upon patient request if the [...]
--- OUTSIDE RECORDS SUMMARY | 2022-04-25 06:36 | XMS_ITS | Continuity of Care Document ---
:1995 Author Organization [facility] Adult Address [address] [place] [address]- Care Team Providers Name Role Phone Aaron CAREY, Olga Dos Santos Primary Care Physician [facility] Date(s): 07/22/21 - 08/21/21 [facility] Adult [address] [place] [address]- Allergies, Adverse Reactions, Alerts No Known Allergies [...] pediatric vaccine9 93 Recorded hepatitis B pediatric bwkpqxa88 93 Recorded hepatitis B adult sxfeebo86, 12 93 Recorded 1Result Comment: left deltoid lot 006B exp 03-26-2021 cxe6Cenldv Comment: Covid-19 mRNA lot 027A Moderna exp [id number] [facility] left oxmzbhw2Accogh Comment: [02/14/2015] [place] PWNQ0Hdjbpc Comment: [02/14/2015] [place] AJCL5Grcefd Comment: [02/14/2015] [facility] JEGY7Ujnujo Comment: [02/14/2015] DRE OZYT0Jqzmyr Comment: [02/14/2015] D[facility] DZDQ7Iwkspk Comment: [02/14/2015] [facility] PEDI9 Result Comment: [02/14/2015] [facility] DIQM72Dbvcry Comment: [02/14/2015] [facility] MILLERXYET71Yclfbo Comment: ENTERED IN UXDNG29Pnamkh Comment: [02/14/2015] [facility]RE MILLERI Medications buPROPion 150 mg/24 hours (XL) oral [...] Mouth, Daily, schedule physical with Olga Walker BOTTOM TURNING LATHE TENDER for refills, # 30 tablet, 0 Refills, [...]
--- OUTSIDE RECORDS SUMMARY | 2022-04-25 06:36 | XMS_ITS | Continuity of Care Document ---
:1995 Author Organization [facility] Adult Address [address] [place] [address]- Care Team Providers Name Role Phone Aaron CAREY, Olga Dos Santos Primary Care Physician [facility] Date[facility]s): 07/18/20 - 08/17/20 [facility] Adult [address] [place] [address]- Allergies, Adverse Reactions, Alerts Substance Reaction Severity [...] vaccine9, 10 93 Recorded 1Result Comment: [02/14/2015] [place] TESR2Npexxw Comment: [02/14/2015] [place] TEEM3Wwbyot Comment: [02/14/2015] [place] ENPO0Uxytun Comment: [02/14/2015] [place] NLOT7Ekjxpn Comment: [02/14/2015] [place] ZSPA4Ctnljg Comment: [02/14/2015] [place] SOKW8Raczzu Comment: [02/14/2015] [place] IJMK3Joapgb Comment: [02/14/2015] DRE MERIDA9Result Comment: ENTERED IN IIYLC66Xeklzp Comment: [02/14/2015] DRE MERIDA Medications buPROPion 150 [...] Mouth, Daily, schedule physical with Olga Walker [employer]GER [employer] for refills, # 30 tablet, 0 Refills, [...]
--- OUTSIDE RECORDS SUMMARY | 2022-04-25 06:36 | XMS_ITS | Continuity of Care Document ---
:1995 Author Organization [facility] Adult Address [address] [place] [address]- Care Team Providers Name Role Phone Aaron CAREY, Olga Dos Santos Primary Care Physician Encounter [facility] [place] Date(s): 07/22/21 - 09/21/21 [facility] Adult [address] [place] [address]- Attending Physician: Olga Walker NP Allergies, Adverse [...] pediatric vaccine9 93 Recorded hepatitis B pediatric nyaxzal01 93 Recorded hepatitis B adult ikvdpnf15, 12 93 Recorded 1Result Comment: left deltoid lot 006B exp 03-26-2021 jox4Tncmvq Comment: Covid-19 mRNA lot 027A Moderna exp [id number] [facility] left szykzgh7Cpdtkr Comment: [02/14/2015] DRE GDOC9Ianhxg Comment: [02/14/2015] DRE PQTJ1Hebwfy Comment: [02/14/2015] DRE IAZV8Czmhoc Comment: [02/14/2015] DRE LKMS3Ghyabu Comment: [02/14/2015] DRE TYKB3Gibyqo Comment: [02/14/2015] [facility] PEDI9 Result Comment: [02/14/2015] DRE PNMQ40Gstbjd Comment: [02/14/2015] DRE YYOR62Jcnaqv Comment: ENTERED IN RXHMQ75Zioljp Comment: [02/14/2015] [facility]I Medications buPROPion 150 [...]
--- OUTSIDE RECORDS SUMMARY | 2022-04-25 06:36 | XMS_ITS | Continuity of Care Document ---
:1995 Author Organization [facility] Adult Address [address] [place] [address]- Care Team Providers Name Role Phone Aaron CAREY, Olga Dos Santos Primary Care Physician [facility]counter [facility] Date(s): 07/18/20 - 08/17/20 [facility] Adult [address] [place] [address]- Allergies, Adverse Reactions, Alerts Substance Reaction Severity [...] 10 93 Recorded 1Result Comment: [02/14/2015] [place] LEUA3Plvbdo Comment: [02/14/2015] [place] GGJX8Gzshgp Comment: [02/14/2015] [place] EONY9Letkog Comment: [02/14/2015] [place] AMNG8Skujsx Comment: [02/14/2015] [place] APVR8Ejwqro Comment: [02/14/2015] [place] SIFM0Rvenqa Comment: [02/14/2015] [place] HVYL9Kjgkyi Comment: [02/14/2015] DRE MERIDA9Result Comment: ENTERED IN XJPLV43Zfmiyj Comment: [02/14/2015] DRE MERIDA Medications buPROPion 150 [...] Mouth, Daily, schedule physical with Olga Walker [employer]TER [employer] DRIVER for refills, # 30 tablet, 0 Refills, [...]
--- OUTSIDE RECORDS SUMMARY | 2022-04-25 06:36 | XMS_ITS | Continuity of Care Document ---
:1995 Author Organization [facility] Adult Address [address] [place] [address]- Care Team Providers Name Role Phone Aaron CAREY, Olga Dos Santos Primary Care Physician [facility] Date[facility]s): 01/17/22 - 02/16/22 [facility] Adult [address] [place] [address]- Allergies, Adverse Reactions, Alerts No Known Allergies [...] pediatric vaccine9 93 Recorded hepatitis B pediatric ibojisp64 93 Recorded hepatitis B adult skledvr33, 12 93 Recorded 1Result Comment: left deltoid lot 006B exp 03-26-2021 voc1Svrpdc Comment: Covid-19 mRNA lot 027A Moderna exp [id number] cvs left wzrrwdo2Brtotp Comment: [02/14/2015] [place] MILLERI4Result Comment: [02/14/2015] [place] QKUA3Seoeez Comment: [02/14/2015] [place] UTDE5Mznqhs Comment: [02/14/2015] [place] QJDD3Rweqrp Comment: [02/14/2015] [place] ECYJ6Phdpym Comment: [02/14/2015] [place] PEDI9 Result Comment: [02/14/2015] [place] RGSI14Chslcu Comment: [02/14/2015] [place] ALCM80Wtcmxb Comment: ENTERED IN RLLWI89Unaqfc Comment: [02/14/2015] DRE PEDI Medications Kelnor 1 mg-35 mcg oral tablet See Instructions, TAKE 1 TABLET BY MOUTH EVERY DAY, # 84 tablet, 4 Refills, 01/09/22 14:04:00 EDT, [facility]/pharmacy #[id number], TAKE 1 TABLET BY MOUTH EVERY DAY, 162, cm, 01/09/22 13:51:00 EDT, Height, 112.8, kg, 12/03/21 10:32:00 EDT, Dry Weight Start Date: 01/09/22 Status: Orderedlevothyroxine 0.1 mg oral tablet 1 tablet, By Mouth, Daily, X7 WEEK(S. REPEAT TSH LEVEL IN 6 WEEKS, # 30 tablet, 1 Refills, [facility] [id number], 162, cm, 01/09/22 13:51:00 EDT, Height, 112.8, kg, 12/03/21 10:32:00 EDT, Dry Weight Start Date: 02/11/22 Status: Orderedsertraline 25 mg oral tablet 1 tablet, By Mouth, Daily, # 90 tablet, 0 Refills, [id number], 162, cm, 01/09/22 13:51:00 EDT, Height, 112.8, [...]
--- OUTSIDE RECORDS SUMMARY | 2022-04-25 06:36 | XMS_ITS | Continuity of Care Document ---
:1995 Author Organization [facility] Adult Address [address] [place] [address]- Care Team Providers Name Role Phone Aaron CAREY, Olga Dos Santos Primary Care Physician [facility] Date[facility]s): 08/28/21 - 09/27/21 [facility] Adult [address] [place] [address]- Allergies, Adverse Reactions, Alerts No Known Allergies [...] pediatric vaccine9 93 Recorded hepatitis B pediatric kaepfxr82 93 Recorded hepatitis B adult ffgtego04, 12 93 Recorded 1Result Comment: left deltoid lot 006B exp 03-26-2021 xbl2Hwzahs Comment: Covid-19 mRNA lot 027A Moderna exp [id number] cvs left annlkij7Lhcvon Comment: [02/14/2015] [place] CESW1Hqksuc Comment: [02/14/2015] [place] WBNN6Cxohog Comment: [02/14/2015] DRE GHMP4Oeeoex Comment: [02/14/2015] DRE ZSOB1Rxjrio Comment: [02/14/2015] DRE DEFP9Ckakxy Comment: [02/14/2015] DRE PEDI9 Result Comment: [02/14/2015] DRE QBSD54Qjizwg Comment: [02/14/2015] DRE YFDS36Ctiulk Comment: ENTERED IN PYAYE87Lkejnh Comment: [02/14/2015] DRE MILLERI Medications buPROPion 150 [...]
--- OUTSIDE RECORDS SUMMARY | 2022-04-25 06:36 | XMS_ITS | Continuity of Care Document ---
:1995 Author Organization [facility] Address [address] [place] [address]- Care Team Providers Name Role Phone Aaron CAREY, Olga Dos Santos Primary Care Physician Encounter [facility] Date(s): 12/03/21 - 12/03/[address] [address] Discharge Disposition: A-D/C Home Attending Physician: Dorcas Urrutia MD Admitting Physician: Dorcas Urrutia MD Referring Physician: Dorcas Urrutia MD Allergies, Adverse Reactions, Alerts No Known [...] pediatric vaccine9 93 Recorded hepatitis B pediatric ywhsimn68 93 Recorded hepatitis B adult mgkvnje45, 12 93 Recorded 1Result Comment: left deltoid lot 006B exp 03-26-2021 tsn7Cqgdve Comment: Covid-19 mRNA lot [id number] Moderna exp [id number] cvs left lojmybg0Dumraj Comment: [02/14/2015] [place] HTRX0Djyllc Comment: [02/14/2015] [place] JFDO6Kwhldk Comment: [02/14/2015] [place] QAIW4Eofjvb Comment: [02/14/2015] [place] FDTI7Coqptq Comment: [02/14/2015] [place] HUNO5Powwnb Comment: [02/14/2015] [place] PEDI9 Result Comment: [02/14/2015] [place] RUDE73Vkbjna Comment: [02/14/2015] [place] KJAX92Amhcgk Comment: ENTERED IN AXMCQ74Kudfty Comment: [02/14/2015] [facility] PEDI Medications buPROPion 150 [...] 7:02:00 EDT, Height Start Date: 10/24/21 Status: OrderedZovia 1/35 oral tablet 1 tablet, By Mouth, Daily, # 28 tablet, 0 Refills, Maintenance, 12/03/21 12:46:00 EDT, Tablet, [id number], Partial fill upon patient request if the prescription is for a schedule II opioid drug., 1 tablet By Mouth Daily, 162, cm, 12/03/21 10:3... Start Date: 12/03/21 Status: Ordered Problem List Condition Effective Dates Status Health Status Informant Obesity with body mass index of 30.0 - Active 39.9(Confirmed) Hypothyroidism(Confirmed) Active Kidney stone(Confirmed) Active Surveillance for control, oral Active contraceptives(Confirmed) PCOS (polycystic ovarian Active syndrome)(Confirmed) Depression, major, Active recurrent(Confirmed) Amenorrhea, secondary(Confirmed) Active Severe obesity(Confirmed) Active Procedures Procedure Date Related Diagnosis Body Site Status [place] tooth Completed Vital Signs Most recent to oldest [Reference Range]: 1 2 Height 162 cm 162 cm (12/03/21 10:32 AM) (12/03/21 10:16 AM) Weight 112.8 kg (12/03/21 10:32 AM) Oxygen Saturation [94-100 %] 100 % (12/03/21 10:32 AM) Pulse Rate [55-90 bpm] 78 bpm (12/03/21 10:32 AM) Body Mass Index [18.5-24.99] 42.98 *>HHI* (12/03/21 10:32 AM) Blood Pressure [90-138/55-84 mm Hg] 134/92 mm Hg (12/03/21 10:32 AM) Respiratory Rate [16-30 br/min] 18 br/min (12/03/21 10:32 AM) Temperature [96.8-100.4 DegF] 99.5 DegF (12/03/21 10:32 AM) Mode of Delivery (Oxygen) Room air (12/03/21 10:32 AM) Blood pressure sites Arm, right 1 (12/03/21 10:32 AM) Temperature Route Oral (12/03/21 10:32 AM) Dry Weight 112.8 kg (12/03/21 10:32 AM) 1Result Comment: right upper arm measured 39cm Social History Social History Type Response Smoking Status Never smoker entered on: 01/25/15 Sex
--- OUTSIDE RECORDS SUMMARY | 2022-04-25 06:36 | XMS_ITS | Continuity of Care Document ---
:1995 Author Organization [facility] Adult Address [address] [place] [address]- Care Team Providers Name Role Phone Aaron CAREY, Olga Dos Santos Primary Care Physician [facility]s): 08/24/21 - 09/23/21 [facility] Adult [address] [place] [address]- Allergies, Adverse Reactions, Alerts No Known Allergies [...] pediatric vaccine9 93 Recorded hepatitis B pediatric iakejas77 93 Recorded hepatitis B adult rustybp65, 12 93 Recorded 1Result Comment: left deltoid lot 006B exp 03-26-2021 vxw8Pzjkpc Comment: Covid-19 mRNA lot 027A Moderna exp [id number] cvs left zidtboy4Siuzrl Comment: [02/14/2015] [place] LAZK1Rtshgn Comment: [02/14/2015] [place] QYKB5Iqihio Comment: [02/14/2015] DRE FRQN0Obdths Comment: [02/14/2015] DRE ZMLC8Yjjylx Comment: [02/14/2015] DRE QCQZ4Ycemao Comment: [02/14/2015] DRE PEDI9 Result Comment: [02/14/2015] DRE PDAZ59Kkwefh Comment: [02/14/2015] DRE ITBX63Dihuje Comment: ENTERED IN OMXRM96Bcasrp Comment: [02/14/2015] DRE MILLERI Medications buPROPion 150 [...]
--- OUTSIDE RECORDS SUMMARY | 2022-04-25 06:36 | XMS_ITS | Continuity of Care Document ---
:1995 Author Organization [facility] Adult Address [address] [place] [address]- Care Team Providers Name Role Phone Aaron CAREY, Olga Dos Santos Primary Care Physician [facility] 08/17/20 - 08/24/20 [facility] [address] [place] [address]- Encounter Diagnosis Annual physical exam (Discharge Diagnosis) - 08/17/20 Hypothyroidism (Discharge Diagnosis) - 08/17/20 Depression, major, recurrent (Discharge Diagnosis) - 08/17/20 PCOS (polycystic ovarian syndrome) (Discharge Diagnosis) - 08/17/20 Attending Physician: Olga Walker NP Allergies, Adverse Reactions, Alerts Substance Reaction Severity [...] 10 93 Recorded 1Result Comment: [02/14/2015] DRE UTTL6Gessiw Comment: [02/14/2015] [place] AMNT9Rjvlua Comment: [02/14/2015] [place] YTNT3Yppvgn Comment: [02/14/2015] DRE VFRZ6Hqtlnb Comment: [02/14/2015] DRE OHGH1Uueymg Comment: [02/14/2015] DRE TJAQ1Btvfxf Comment: [02/14/2015] DRE MYBN4Zpqjtk Comment: [02/14/2015] DRE MZYR2Yhxwzi Comment: ENTERED IN SHSMJ03Qnbxzf Comment: [02/14/2015] DRE MILLERI Medications buPROPion 150 [...] Mouth, Daily, schedule physical with Olga Walker COILED TUBING OPERATOR for refills, # 30 tablet, 0 Refills, [...] Depression, major, Active recurrent(Confirmed) Amenorrhea, secondary(Confirmed) Active Diagnosis Diagnosis Type Effective Dates Health Clinical Infor mant Status Service Annual physical exam Discharge 08/17/20 Diagnosis Hypothyroidism Discharge 08/17/20 Diagnosis Depression, major, Discharge 08/17/20 recurrent Diagnosis PCOS (polycystic Discharge 08/17/20 ovarian syndrome) Diagnosis Vital Signs Most recent to oldest [Reference Range]: 1 Height 162 cm (08/17/20 6:58 AM) Social History Social History Type Response Smoking Status Never smoker entered on: 01/25/15 Sex
--- OUTSIDE RECORDS SUMMARY | 2022-04-25 06:36 | XMS_ITS | Continuity of Care Document ---
:1995 Author Organization [facility] Adult Address [address] [place] [address]- Care Team Providers Name Role Phone Aaron CAREY, Olga Dos Santos Primary Care Physician [facility] Date[facility]s): 07/18/20 - 08/17/20 [facility] Adult [address] [place] [address]- Allergies, Adverse Reactions, Alerts Substance Reaction Severity [...] 10 93 Recorded 1Result Comment: [02/14/2015] [place] CIEA7Ndugya Comment: [02/14/2015] [place] QNSZ0Ujgxjw Comment: [02/14/2015] [place] BJRW5Ohchdy Comment: [02/14/2015] [place] VRDM3Xlcoeb Comment: [02/14/2015] [place] DNXJ1Xhexmz Comment: [02/14/2015] [place] FTNC8Xgndhn Comment: [02/14/2015] [place] YRUJ5Phouzd Comment: [02/14/2015] DRE MERIDA9Result Comment: ENTERED IN VCZZB75Dnwmol Comment: [02/14/2015] DRE MERIDA Medications buPROPion 150 [...] Mouth, Daily, schedule physical with Olga Walker GUM DIPPER for refills, # 30 tablet, 0 Refills, [...]
--- OUTSIDE RECORDS SUMMARY | 2022-04-25 06:37 | XMS_ITS | Continuity of Care Document ---
:1995 Author Organization [facility] Adult Address [address] [place] [address]- Care Team Providers Name Role Phone Aaron CAREY, Olga Dos Santos Primary Care Physician Encounter [facility] Date(s): 12/03/21 - 01/02/22 [facility] Adult [address] [place] [address]- Allergies, Adverse Reactions, Alerts No Known Allergies [...] pediatric vaccine9 93 Recorded hepatitis B pediatric yxrwapy34 93 Recorded hepatitis B adult vwenkdv05, 12 93 Recorded 1Result Comment: left deltoid lot 006B exp 03-26-2021 aic2Fcdiad Comment: Covid-19 mRNA lot 027A Moderna exp [id number] cvs left uwuryha5Ypogti Comment: [02/14/2015] [place] MILLERI4Result Comment: [02/14/2015] [place] BJWL4Ksgily Comment: [02/14/2015] [place] OZHE9Dfeidl Comment: [02/14/2015] [place] UHOL9Xsccml Comment: [02/14/2015] [place] GPDX2Ypqape Comment: [02/14/2015] [place] PEDI9 Result Comment: [02/14/2015] [place] SIFY92Hatrwx Comment: [02/14/2015] [place] OLAA04Vlqdqx Comment: ENTERED IN TOLAU48Torzto Comment: [02/14/2015] [place] PEDI Medications Kelnor 1 mg-35 mcg oral tablet See Instructions, TAKE 1 TABLET BY MOUTH EVERY DAY, # 28 tablet, 0 Refills, [id number], 28, TAKE 1 TABLET BY MOUTH EVERY [...] 1 Refills, Maintenance, 12/26/21 7:26:00 EDT, [id number], Partial fill upon patient request if the [...]
--- OUTSIDE RECORDS SUMMARY | 2022-04-25 06:37 | XMS_ITS | Continuity of Care Document ---
:1995 Author Organization [facility] Adult Address [address] [place] [address]- Care Team Providers Name Role Phone Aaron CAREY, Olga Dos Santos Primary Care Physician [facility] Date(s): 07/23/21 - 08/22/21 [facility] Adult [address] [place] [address]- Allergies, Adverse Reactions, Alerts No Known Allergies [...] B pediatric 93 Recorded hepatitis B adult cscszon84, 12 93 Recorded 1Result Comment: left deltoid lot 006B exp 03-26-2021 lcc1Kkslhw Comment: Covid-19 mRNA lot 027A Moderna exp 069 cvs left wgoxohg5Mpwoko Comment: [02/14/2015] [place] MUVT8Xfccxl Comment: [02/14/2015] [place] VMFS0Njnfrp Comment: [02/14/2015] DRE LSQX2Vpkejr Comment: [02/14/2015] RDE ATCX7Llksva Comment: [02/14/2015] DRE UNUB0Jjfpye Comment: [02/14/2015] DRE PEDI9 Result Comment: [02/14/2015] DRE EMOD09Tcpvsq Comment: [02/14/2015] DRE MILLERWKAZ04Uberfg Comment: ENTERED IN CMGRF57Njabre Comment: [02/14/2015] DRE MILLERI Medications buPROPion 150 [...] Mouth, Daily, schedule physical with Olga Walker LACE AND TEXTILES RESTORER for refills, # 30 tablet, 0 Refills, [...]
--- OUTSIDE RECORDS SUMMARY | 2022-04-25 06:37 | XMS_ITS | Continuity of Care Document ---
:1995 Author Organization [facility] Adult Address [address] [place] [address]- Care Team Providers Name Role Phone Aaron CAREY, Olga Dos Santos Primary Care Physician Encounter [facility] Date(s): 12/26/21 - 01/02/22 [facility] Adult [address] [place] [address]- Encounter Diagnosis Hypothyroidism (Discharge Diagnosis) - 12/26/21 Depression, major, recurrent (Discharge Diagnosis) - 12/26/21 Attending Physician: Olga Walker NP Referring Physician: [...] B pediatric 93 Recorded hepatitis B adult hnhwycg66, 12 93 Recorded 1Result Comment: left deltoid lot 006B exp 03-26-2021 aoa4Gjpfqy Comment: Covid-19 mRNA lot 027A Moderna exp [id number] cvs left kduyfgc0Gdapak Comment: [02/14/2015] [place] SIJZ3Mrtaxc Comment: [02/14/2015] [place] CXIO0Timaso Comment: [02/14/2015] [place] BNLH5Dwumxx Comment: [02/14/2015] [place] BETQ5Fksroo Comment: [02/14/2015] [place] LYHN1Okavqa Comment: [02/14/2015] [place] PEDI9 Result Comment: [02/14/2015] [place] DROE87Cvmaqx Comment: [02/14/2015] [place] OGOD39Iszhcg Comment: ENTERED IN FTKHC12Kpooxc Comment: [02/14/2015] [place] [facility]I Medications Kelnor 1 mg-35 mcg oral tablet See Instructions, TAKE 1 TABLET BY MOUTH EVERY DAY, # 28 tablet, 0 Refills, [facility], 28, TAKE 1 TABLET BY MOUTH EVERY [...] tablet, 1 Refills, Maintenance, 12/26/21 7:26:00 EDT, [facility]/pharmacy #[id number], Partial fill upon patient request if the [...] Dates Health Clinical Infor mant Status Service Hypothyroidism Discharge 12/26/21 Diagnosis Depression, major, Discharge 12/26/21 recurrent Diagnosis Vital Signs Most recent to oldest [Reference Range]: 1 Height 162 cm (12/26/21 7:02 AM) Social History Social History Type Response Smoking Status Never smoker entered on: 01/25/15 Sex
--- OUTSIDE RECORDS SUMMARY | 2022-04-25 06:37 | XMS_ITS | Continuity of Care Document ---
:1995 Author Organization [facility] Adult Address [address] [place] [address]- Care Team Providers Name Role Phone Aaron CAREY, Ogla Dos Santos Primary Care Physician [facility] Date(s): 07/24/21 - 08/23/21 [facility] Adult [address] [place] [address]- Allergies, Adverse Reactions, Alerts No Known Allergies [...] pediatric vaccine9 93 Recorded hepatitis B pediatric xygwtov17 93 Recorded hepatitis B adult xqikdji76, 12 93 Recorded 1Result Comment: left deltoid lot 006B exp 03-26-2021 ddx4Uswhjc Comment: Covid-19 mRNA lot 027A Moderna exp [id number] cvs left rwsutvt1Ejzluz Comment: [02/14/2015] [place] MFVI2Qibcjd Comment: [02/14/2015] [place] TDTI8Arjacm Comment: [02/14/2015] DRE EHIO7Dgvsff Comment: [02/14/2015] DRE RTFW7Gzpqzm Comment: [02/14/2015] DRE KXYL0Rnchng Comment: [02/14/2015] DRE PEDI9 Result Comment: [02/14/2015] DRE ODNP51Vcixfa Comment: [02/14/2015] DRE MILLEROMEK97Ofkoom Comment: ENTERED IN QCFCX27Xtzyzk Comment: [02/14/2015] DRE MILLERI Medications buPROPion 150 [...] Mouth, Daily, schedule physical with Olga Walker MEDICAL AIDES TEACHER for refills, # 30 tablet, 0 Refills, [...]
--- OUTSIDE RECORDS SUMMARY | 2022-04-25 06:37 | XMS_ITS | Continuity of Care Document ---
:[address] [facility] Adult Address [address] [place] [address]- Care Team Providers Name Role Phone Aaron CAREY, Olga Dos Santos Primary Care Physician [facility] Date(s): 12/19/21 - 01/18/22 [facility] Adult [address] [place] [address]- Allergies, Adverse Reactions, Alerts No Known Allergies [...] pediatric vaccine9 93 Recorded hepatitis B pediatric qsbytol23 93 Recorded hepatitis B adult , 12 93 Recorded 1Result Comment: left deltoid lot 006B exp 03-26-2021 cqj4Bpjwtf Comment: Covid-19 mRNA lot 027A Moderna exp [id number] [facility]vs left rbwrdvq1Bdbumy Comment: [02/14/2015] D[place] MILLERI4Result Comment: [02/14/2015] [place] JSKN1Llqync Comment: [02/14/2015] [place] YKHR9Kyggtf Comment: [02/14/2015] [place] UEYY7Zoztaw Comment: [02/14/2015] [place] YCQI6Olnwuu Comment: [02/14/2015] [place] PEDI9 Result Comment: [02/14/2015] [place] WXRN01Loxpzb Comment: [02/14/2015] [place] IZSS48Uxpnwy Comment: ENTERED IN KGLGN33Xiaxlg Comment: [02/14/2015] [place] PEDI Medications Kelnor 1 mg-35 mcg oral tablet See Instructions, TAKE 1 TABLET BY MOUTH EVERY DAY, # 84 tablet, 4 Refills, 01/09/22 14:04:00 EDT, [facility]/pharmacy #[id number], TAKE 1 TABLET BY MOUTH EVERY DAY, 162, cm, 01/09/22 13:51:00 EDT, Height, 112.8, kg, 12/03/21 10:32:00 EDT, Dry Weight Start Date: 01/09/22 Status: Orderedlevothyroxine 0.1 mg oral tablet 1 tablet = 100 mcg, By Mouth, Daily, repeat tsh level in 6 weeks, # 49 tablet, 0 Refills, Maintenance, 01/17/22 11:11:00 EDT, Tablet, [facility]/pharmacy #[id number], Partial fill upon patient request if [...] 1 Refills, Maintenance, 12/26/21 7:26:00 EDT, [id number], Partial fill upon patient request if the [...]
[2022-04-25] MEDS: Lactated Ringers 1,000 ML 999 ML IV (06:42)
[2022-04-25 06:47] LABS: COVID-19 Test Negative (Negative); IDNOW Serial# 16C4AD1C
--- NOTE | 2022-04-25 07:21 | PHA.MEDREC ---
Pharmacy Consult ? Medication Reconciliation Pharmacy has completed the medication reconciliation. Reviewed med rec done by nursing
--- NOTE | 2022-04-25 07:40 | P.BOP_ITS ---
Brief Operative Note Date of Service: 04/25/22 Pre-op diagnosis: Severe obesity with comorbidities (see below) Post-op diagnosis: same Procedure: INITIAL PATIENT BMI ON PRESENTATION AT OUR OFFICE: 44.7 kg/m2 LAST BMI BEFORE SURGERY: 38.8 kg/m2 COMORBIDITIES: depression, hypothyroidism, nephrolithiasis, back pain ?The patient presented to the Weight Management Program with significant obesity that was negatively impacting the patient's comorbidities as listed above.? The program is a phased program with a special focus on preoperative medical weight management to promote substantial weight loss and prepare the patients for the second phase of the program: bariatric surgery. The patient participated in an intensive weekly lifestyle ?intervention and exercise program during which the patient ?has lost between the initial office visit and the last preoperative visit 35.8lbs, or 13.76% of initial actual body weight. It was deemed appropriate for the patient to now have bariatric surgery. In light of the current Covid-19 pandemic and the well documented strong association of obesity and increased risk of worse outcomes if infected with Covid-19 (REFERENCES: https://pubmed.ncbi.nlm.nih.gov/86595221/ ,? https://pubmed.ncbi.nlm.nih.gov/90347262/ ), any delay in undergoing bariatric surgery may lead to the patient's worsening health condition and increased?risk of more severe Covid-19 disease if infected. In addition a recent?study from [facility] published in [facility] on 07/16/2021 ([email or web address]) found that, among patients with obesity, substantial weight loss achieved with surgery was associated with improved outcomes of COVID-19 infection. The findings suggest that obesity can be a modifiable risk factor for the severity of COVID-19 infection. In addition, the patient met the BMI-criteria for bariatric surgery based on the BMI on initial presentation. The patient should not be penalized for achieving such weight loss because ?it is not sustainable long-term without surgical intervention and it was achieved in preparation for bariatric surgery ?under my direction and based on my published research ([email or web address]).[email or web address] and? https://www.soard.org/article/[email or web address](30)02661-X/pdf ) ?that a 10% preoperative weight loss improves long-term weight loss after surgery and reduces perioperative complications.? Insurance carriers such as [facility] have endorsed my recommendations ?and have included in their policies criteria to include a 10% preoperative weight loss requirement. PROCEDURE: Esophago-gastroscopy, laparoscopic lysis of adhesions, laparoscopic sleeve gastrectomy and laparoscopic gastropexy INDICATIONS: This is a 26 year-old female who was electively scheduled for laparoscopic, possibly open sleeve gastrectomy. The risks and complications of the procedure were discussed with the patient in advance, particularly the possibility of ; pulmonary embolism; staple line leak; bleeding; GERD; cardiac, pulmonary, or renal complications; as well as long-term problems such as insufficient weight loss, vitamin deficiency, strictures, or ulcers. The patient understood all the risks, and was in agreement to proceed with surgery. DESCRIPTION OF PROCEDURE: After informed consent was obtained from the patient, the patient was given preoperative antibiotics, and was transferred to the operating room. After successful induction of general anesthesia, pneumatic compression devices were placed on both lower extremities. An upper endoscopy was performed next. The oropharynx and esophagus appeared to be within normal limits. There was no diaphragmatic hernia present consistent with the findings of the preoperative upper GI. The stomach was entered. Then after all fluid and air were suctioned and the stomach was fully decompressed, the scope was withdrawn and secured in the mid esophagus. The patient was then prepped and draped in the usual sterile manner, and abdominal access was established at the right upper quadrant with the Gabriel technique. A 12 mm blunt port was inserted, and the abdomen was insufflated with CO2 to a pressure of 15 mmHg. Under direct visualization, additional ports were placed, specifically two 5 mm Versi-step ports to the left upper quadrant, and a 5 mm Versi-Step port to the right upper quadrant. 1% lidocaine plain was used to infiltrate all port sites as well as all fascia defects. Using the EndoClose suture passer device, I placed a #1 Polysorb tie across the falciform ligament in order to retract it up against the abdominal wall and prevent injury of the ligament with our instruments during the procedure. Following that, the patient was placed in a steep reverse Trendelenburg position. An additional 5 mm port was placed to the right flank for the Mediflex retractor that was used to retract the left lobe of the liver. The gastro-esophageal fat pad was opened with the ultrasonic device (Thunderbeat, Olympus) and the anterior esophagus and hiatus were exposed. The angle of His was opened with the ultrasonic device the fundus of the stomach from any diaphragmatic and splenic attachments. I then opened the gastrocolic ligament between the transverse colon and the greater curvature of the stomach with the ultrasonic device to enter the lesser sac and facilitate the ligation of the short gastric vessels. I started at a mid-point along the greater curvature and using the Thunderbeat, all short gastric vessels were divided all the way to the angle of His until the left jordan was completely dissected at its entirety. I then divided the gastro-colic ligament distally to a distance of about 3-4 cm proximal to the pylorus. There were extensive congenital adhesions between the pancreas and posterior gastric wall. Those were lysed completely with the ultrasonic device. Adhesiolysis took approximately 45 min to complete. The stomach was then divided transversely with one Endo MACIE-45 purple, one MACIE- 45 orange load and three MACIE-60 articulating orange loads using the AEON stapler and loads. Every effort was made that the gastric sleeve had a tubular shape and an even caliber throughout. Once the sleeve resection was completed, the staple line of the gastric sleeve was reinforced with Hemoclips. The resected stomach was retrieved without difficulty from the Gabriel port. A gastropexy was then performed in order to prevent postoperative GERD and partial gastric volvulus. Several interrupted 2.0 Surgidac sutures were placed between the sleeve's staple line and the previously divided greater omentum and gastro-colic ligament using the Endo-Stitch device. ?An upper endoscopy was performed. There was no narrowing at the GE junction. The scope was easily advanced all the way to the pylorus which was clearly visualized. There was no narrowing anywhere and the sleeve's caliber was even throughout. The sleeve's staple line was inspected and there was no evidence of ischemia, bleeding or dehiscence. At that point the gastroscope was withdrawn from the patient?s mouth while we were decompressing the bowel and the stomach from any remaining air. I looked into the lesser sac to see how the sleeve was situating and it was situating well. There was no bleeding from the staple line, spleen, or short gastric vessels. The Mediflex retractor was removed, and the undersurface of the liver was inspected and there was no bleeding. The patient was placed in supine position. I closed the fascial defect of the 12 mm port site with a figure of eight #1 Polysorb suture. [id number] Ropivacaine plain with 10 mg of Dexamethasone were used to infiltrate the fascial closure as well as all skin incisions. A total of 7ml of Zynrelef was applied in the Hassson wound. At this point, the abdomen was deflated, all ports were removed under direct vision, and no bleeding was noted from any of the port sites. The skin incisions were irrigated with saline and were closed with 4-0 absorbable monofilament sutures. Steri-Strips and OpSites were used to cover all incisions. The patient was extubated and was transferred in stable condition to the recovery room for further care. I was present and performed all perez parts of the procedure. Ms. Wise was the or first assist registered nurse. There were no residents to assist with this case. Deion Brush MD, PhD, FACS Surgeon: Gildardo Brush MD Anesthesia: GETA, local and other (TAP block and 7ml Zynrelef) Was an Concrete Form Setter And Finisher used for this Procedure?: No Concrete Form Setter And Finisher: Mariangel Wise Estimated blood loss (mL): 10 IV fluids (mL): 2,500 Urine output (mL): 0 (No Sánchez to record output) Pathology: other (Stomach) Condition: stable Disposition: PACU
--- NOTE | 2022-04-25 07:43 | PM.PNGS ---
Subjective Subjective Date of Service: 04/26/22 Interval history: Patient has mild incisional pain, but was able to ambulate and use the incentive spirometer. She is tolerating phase 1 bariatric diet Physical Exam Vital Signs: Vital Signs: Last Vital Signs Temp 97.3 F 04/25/22 06:28 Pulse 77 04/25/22 06:28 Resp 18 04/25/22 06:28 BP 144/84 H 04/25/22 06:28 Pulse Ox 100 04/25/22 06:28 O2 Del Method 04/25/22 06:28 BMI result Body Mass Index 38.4 GI: Inspection: Yes normal to inspection, Yes incision (dry, clean and intact) and Yes obesity Extrem: Right lower extremity: normal to inspection (no calf tenderness) Left lower extremity: normal to inspection (no calf tenderness) Objective Data Active Medications Lactated Ringer's (Lr) 1,000 mls @ 100 mls/hr IVCONT .Q10H LIZETH Lactated Ringer's (Lr) 1,000 mls @ 999 mls/hr IV .Q1H1M LIZETH Stop: 04/25/22 08:15 Last Admin: 04/25/22 06:42 Dose: 999 mls/hr Documented By: DEL Labs CBC & Chem 7: 04/26/22 05:13 04/26/22 05:13 Labs: Laboratory Results - last 24 hr 04/25/22 04/25/22 06:16 06:16 Urine Test NEGATIVE COVID-19 (KAILASH) Negative COVID-19 Clin Com See Note Procedures Date of Service Date of Service: 04/26/22 Progress Note: A&P Assessment and plan (1) Obesity (BMI 30-39.9): Status: Acute Assessment and Plan: s/p laparoscopic sleeve gastrectomy, lysis of adhesions and gastropexy Doing well Check am labs. If OK, will discharge home? (2) BMI 38.0-38.9,adult: Status: Acute (3) Depression: Status: Acute (4) Hypothyroid: Status: Acute (5) Anxiety: Status: Acute (6) Back pain: Status: Acute (7) S/P laparoscopic sleeve gastrectomy: Status: Acute (8) Congenital intra-abdominal adhesions: Status: Acute Time Spent With Patient Time: Total time spent is greater than 50% in coordination of care (as documented) at patient's floor/unit and/or counseling patient: Quality Stroke Does the patient have a stroke diagnosis?: No VTE Prior VTE?: No VTE Risk Level:: Surgical - moderate VTE Device Contraindication: N/A - Device Ordered VTE Drug Contraindication: Treatment Not Indicated
[2022-04-25] MEDS: Lactated Ringers 1,000 ML 100 ML IVCONT ×2 (10:30→20:36)
[2022-04-25 10:57] LABS: Hematocrit 39.5 % (37.0-47.0); Hemoglobin 13.2 g/dl (12.0-16.0)
[2022-04-25 11:49] LABS: Anion Gap 19 (12-20); Blood Urea Nitrogen 10 mg/dL (9-16); Calcium 8.6 mg/dL (8.4-10.2); Carbon Dioxide 19 mmol/L (22-29); Chloride 103 mmol/L (96-108); Creatinine Clr Calc Pharmacy 105.6; Estimated Glomerular Filt Rate > 60; Glucose Random 103 mg/dL (60-115); Potassium 3.7 mmol/L (3.3-5.1); Sodium 137 mmol/L (135-145)
[2022-04-25] MEDS: Famotidine/PF 20 MG/2 ML VIAL IVPUSH ×2 (12:47→20:37)
[2022-04-25] MEDS: ceFAZolin Sodium/Dextrose,Iso 2 GM/50 ML PIGGYBACK IV (12:47)
[2022-04-25] MEDS: ondansetron HCL 4 MG/2 ML VIAL IVPUSH ×2 (16:01→23:54)
[2022-04-25] MEDS: Metoclopramide HCl 10 MG/2 ML VIAL IVPUSH (17:02)
[2022-04-25] MEDS: 0.9 % Sodium Chloride Flush 3 ML SYRINGE IVFLUSH (20:37)
[2022-04-26] VITALS: BP 137/66; PULSE 67; RESP 16; TEMP 36.6; O2SAT 95
[2022-04-26 03:45] VITALS: BP 145/71; PULSE 84; RESP 16; TEMP 37.1; O2SAT 97
[2022-04-26] MEDS: Levothyroxine Sodium 100 MCG TABLET PO (05:50)
[2022-04-26] MEDS: Lactated Ringers 1,000 ML 100 ML IVCONT (05:51)
[2022-04-26 05:59] LABS: MANUAL DIFF FLAG NO
[2022-04-26 06:16] LABS: Basophils Percent Auto 0.1 % (0-2); Hematocrit 35.9 % (37.0-47.0); Imm Gran Abs Auto 0.04 X10*3/uL (0.00-0.03); Imm Gran Pct Auto 0.4 % (0.0-0.4); Lymphocytes Absolute Auto 1.3 X10*3/uL (1.2-4.9); Lymphocytes Percent Auto 11.5 % (20-40); Mean Corpuscular HGB Conc 33.4 g/dl (31.0-35.0); Mean Corpuscular Hemoglobin 28.8 pg (27.0-33.0); Mean Corpuscular Volume 86.1 fL (80.0-98.0); Mean Platelet Volume 11.6 fL (9.4-12.3); Monocytes Absolute Auto 0.7 X10*3/uL (0.1-1.2); Monocytes Percent Auto 6.4 % (2-11); Neutrophils Absolute Auto 9.2 x10*3/uL (2.0-8.3); Neutrophils Percent Auto 81.6 % (45-73); Platelet Count 277 X10*3/uL (160-400); Red Blood Count 4.17 X10*6/uL (4.20-5.50); Red Cell Distribution Width 13.4 % (11.0-16.0); White Blood Count 11.3 X10*3/uL (4.8-10.8)
[2022-04-26 06:18] LABS: Anion Gap 18 (12-20); Blood Urea Nitrogen 6 mg/dL (9-16); Calcium 8.5 mg/dL (8.4-10.2); Carbon Dioxide 18 mmol/L (22-29); Chloride 106 mmol/L (96-108); Creatinine Clr Calc Pharmacy 134.9; Estimated Glomerular Filt Rate > 60; Glucose Random 87 mg/dL (60-115); Potassium 4.3 mmol/L (3.3-5.1); Sodium 138 mmol/L (135-145)
[2022-04-26 07:45] VITALS: BP 145/76; PULSE 62; RESP 18; TEMP 36.7; O2SAT 99
[2022-04-26] MEDS: ondansetron HCL 4 MG/2 ML VIAL IVPUSH (07:52)
[2022-04-26] MEDS: Famotidine/PF 20 MG/2 ML VIAL IVPUSH (07:52)
[2022-04-26] MEDS: 0.9 % Sodium Chloride Flush 3 ML SYRINGE IVFLUSH (07:53)
--- NOTE | 2022-04-26 08:52 | P.DS_ITS ---
DS: Providers Provider Date of Service: 04/26/22 Date of admission: 04/25/22 06:07 Primary care physician: Olga Walker NP DS: Diagnosis Discharge Diagnosis (1) Obesity (BMI 30-39.9): Status: Acute (2) BMI 38.0-38.9,adult: Status: Acute (3) Depression: Status: Acute (4) Hypothyroid: Status: Acute (5) Anxiety: Status: Acute (6) Back pain: Status: Acute (7) S/P laparoscopic sleeve gastrectomy: Status: Acute (8) Congenital intra-abdominal adhesions: Status: Acute DS: Summary Hospital Course Hospital Course: ADMITTING DIAGNOSIS: morbid obesity, hypothyroidism DISCHARGE DIAGNOSIS: same, s/p laparoscopic sleeve gastrectomy PAST SURGICAL HISTORY: none PROCEDURE: upper endoscopy, laparoscopic sleeve gastrectomy DISCHARGE SUMMARY: History of Present Illness: The patient is a 26 year-old woman with a BMI of 44.7 kg/m2 and associated co- morbidities as described above. The patient had extensive work-up,lost 35.8 lbs preoperatively and was electively scheduled for laparoscopic, possible open sleeve gastrectomy and gastropexy. Risks and complications of the surgery were discussed with the patient in advance, particularly the possibility of , pulmonary embolism, anastomotic leak, bleeding, bowel injury, GERD, cardiac, renal or pulmonary complications. The patient understood all the risks and was in agreement with the surgical plan. Hospital Course: The patient underwent an uneventful laparoscopic sleeve gastrectomy with gastropexy on the day of admission. Postoperatively, the patient was transferred to the surgical floor. The patient received IV Acetaminophen and IV dilaudid for pain control. Patient was started on bariatric phase 1 diet POD #0. On postoperative day one, the patient was feeling well without nausea, vomiting, fevers, or tachycardia. The patient had some mild incisional pain and the abdomen was soft. On the morning of postoperative day one, the patient was continued on 1 ounce of water or ice every half hour. During the day, the patient did fairly well, having some incisional pain, but able to ambulate adequately and to tolerate liquids well. Since the patient is doing well, we decided that the patient was ready to be discharged. The patient was given instructions to follow-up with me next week and to call my office for any fever over 101, persistent abdominal pain, nausea, vomiting, GERD, symptoms of DVT such as calf tenderness, or leg swelling, or pulmonary embolism such as chest pain or shortness of breath. The patient was also instructed to drink 40-60 ounces of liquids per day using the 1-ounce cups. The patient had been given prescriptions for Tylenol for pain, Zofran prn for nausea, and pantoprazole and carafate previously. The patient was encouraged to ambulate and use the incentive spirometer. The patient was allowed to shower, but no baths, and encouraged to stay active at home. All of these instructions were given to the patient personally. All questions were answered and the patient understood all instructions, the instructions were also given to the patient in print. Time Spent with Patient Time attestation: Total time spent providing and/or coordinating discharge services: Discharge coordination time: Less than 30 minutes Quality: Safe Use of Opioids Does Pt have an Active Cancer Diagnosis on the Problem List?: No Quality: Stroke Does the patient have a stroke diagnosis?: No Physical Exam Vital Signs: Vital Signs: Last Vital Signs Temp 98.1 F 04/26/22 07:45 Pulse 62 04/26/22 07:45 Resp 18 04/26/22 07:45 BP 145/76 H 04/26/22 07:45 Pulse Ox 99 04/26/22 07:45 O2 Del Method 04/26/22 07:45 O2 Flow Rate 2 04/25/22 11:32 BMI result Body Mass Index 38.4 DS: Data Data Completed and Pending Pending studies at discharge: Pending at discharge 04/25/22 09:14 Surgical [PTH] Routine Labs on day of discharge: Laboratory Results - last 24 hr 04/25/22 04/25/22 04/26/22 10:51 10:51 05:13 WBC 11.3 H RBC 4.17 L Hgb 13.2 12.0 Hct 39.5 35.9 L MCV 86.1 MCH 28.8 MCHC 33.4 RDW 13.4 Plt Count 277 MPV 11.6 Immature Gran % (Auto) 0.4 Neut % (Auto) 81.6 H Lymph % (Auto) 11.5 L [place] % (Auto) 6.4 Eos % (Auto) 0.0 Baso % (Auto) 0.1 Lymph # (Auto) 1.3 [place] # (Auto) 0.7 Eos # (Auto) 0.0 Baso # (Auto) 0.0 Abs Immat Gran (auto) 0.04 H Absolute Neuts (auto) 9.2 H Absolute Nucleated RBC 0.000 Nucleated RBC % (auto) 0.0 Sodium 137 Potassium 3.7 Chloride 103 Carbon Dioxide 19 L Anion Gap 19 BUN 10 Creatinine 0.92 Estim Creat Clear Calc 105.6 Estimated GFR > 60 Random Glucose 103 Calcium 8.6 04/26/22 05:13 WBC RBC Hgb Hct MCV MCH MCHC RDW Plt Count MPV Immature Gran % (Auto) Neut % (Auto) Lymph % (Auto) [place] % (Auto) Eos % (Auto) Baso % (Auto) Lymph # (Auto) [place] # (Auto) Eos # (Auto) Baso # (Auto) Abs Immat Gran (auto) Absolute Neuts (auto) Absolute Nucleated RBC Nucleated RBC % (auto) Sodium 138 Potassium 4.3 Chloride 106 Carbon Dioxide 18 L Anion Gap 18 BUN 6 L Creatinine 0.72 Estim Creat Clear Calc 134.9 Estimated GFR > 60 Random Glucose 87 Calcium 8.5 Discharge Plan Discharge Anticipated Discharge Date/Time: 04/26/22 10:09 Patient Disposition: Home, Self-Care Discharge Diagnosis: s/p sleeve gastrectomy Referrals: Olga Walker, HELMINTHOLOGIST [Primary Care Provider] - 1 Week Discharge Medications: Continued levothyroxine 100 mcg tablet 1 tab PO DAILY pantoprazole 40 mg tablet,delayed release (DR/EC) 40 mg PO DAILY Qty: 30 2RF sucralfate 100 mg/mL suspension 10 ml PO BID Qty: 400 2RF ondansetron HCl 4 mg tablet 4 mg PO Q6H PRN (Reason: nausea and vomiting) Qty: 30 2RF bupropion HCl 150 mg tablet extended release 24 hr 150 mg PO DAILY sertraline 25 mg tablet 25 mg PO DAILY Held ethynodiol diac-eth estradiol [Kelnor 1-50 (28)] 1-50 mg-mcg tablet 1 tab PO DAILY Hold Instructions: Discuss restart with DR Dari Singh cholecalciferol (vitamin D3) 125 mcg (5,000 unit) capsule 125 mcg PO DAILY Qty: 90 1RF ondansetron HCl 4 mg tablet 4 mg PO Q12H Qty: 20 0RF polyethylene glycol 3350 [Miralax] 17 gram powder in packet 17 g PO DAILY Qty: 14 0RF Rx Instructions: Mix each packet with 8oz of water and do 7 packets on 04/23/22 and another 7 packets on 04/24/22 Activity on Discharge: No heavy lifting Stand Alone Forms: Patient Portal Discharge page Care Plan Goals: weight loss Health Concerns: morbid obestiy Plan of Treatment: No tub baths, sex or returning to work until discussed at first post op appointment. No exercise, alcohol, tobacco or illegal drug use. Continue to use incentive spirometer hourly while awake. Walk in home for 5- 10 minutes every 2 hours during the first week. Continue phase 1 diet today and start phase 2 diet tomorrow morning. Follow all instructions in the bariatric handbook and call with any questions. 1. Please call your doctor or come back to the emergency room should any new symptoms arise. 2. You will receive a courtesy call from [facility] 24-48 hours after discharge. 3. Activity: abstain from alcohol, practice limited stair climbing, no bending, no driving, no exercise, no illicit substances, no lifting, no sex, no tub bath, no work. 4. Diet: continue as discussed with bariatric team.. 5. Dressing Change/Wound Care: Do not change or remove surgical dressings unless they are wet or soiled. 6. Call your doctor if: - Your temperature exceeds 101.5 F - You experience excessive pain or swelling - You have an unexpected reaction to medication - You have excessive bleeding - You experience continued vomiting/nausea - Your incision begins to separate - Your incision shows signs of infection such as increased redness, swelling, excessive pain, heat, or drainage (light blood or clear fluid is normal) 7. General instructions: No lifting greater than 5 lbs for the next 4 weeks[address] driving within 24 hours of taking narcotic pain medications. If you do not move your bowels in the next 2 days, please take milk of magnesia over the counter. Please follow the post op diet and do not advance your diet until you are seen in the office in about 2 weeks. Please walk around your home every hour or two to prevent blood clots from forming in your legs. You do not need to wake from sleeping to walk. Please sleep in a bed or couch to prevent kinking at the hips and knees. Please take your incentive spirometer (your lung marine equipment preservation inspector) home with you and use it for the next few days to prevent pneumonias. You may shower, no hot tubs, baths or swimming pools. Please call the office with any questions or concerns such as increasing abdominal pain, fever, chills, shortness of breath, chest pain, leg pain or swelling, or redness or drainage from your incisions. Do not hesitate to contact the office with any questions at . The patient's medical history has been reviewed and they are considered low risk for post op DVT and therefore DVT prophylaxis is not considered necessary. Travel after surgery was reviewed. The patient has not disclosed any travel plans during the first 30 days after surgery and they have been advised that within the first 30 days after surgery any bus, plane, train or car travel over 2 hours in duration is contraindicated due to the possibility of developing blood clots from immobility. Any travel, needs to include periods of ambulation of 10 minutes in duration every 2 hours. The patient was instructed to discuss any plans for travel during this period with their bariatric surgeon. Assessment: stable post op sleeve gstrectomy
--- NOTE | 2022-04-26 10:21 | MHC.CM.PN ---
EMR REVIEWED, PT ADMITTED S/P LAP SLEEVE GASTRECTOMY, CM MET W/PT AT BEDSIDE WHO IS A&OX4, PT'S FATHER ALSO AT BEDSIDE AND PT REPRTS SHE LIVES ALONE HOWEVER WILL STAY W/FATHER FOR A A FEW DAYS PRIOR TO RETURNING HOME, PT INDEP, W/ALL CARE, DENIES USE OF DME/HOME SERVICES, PT VERIFIES [facility], PFIZER X3 AND HAS BEEN EDUCATED ON AND DECLINES TO COMPLETE A HCP W/CM. PT DISCHARGING TODAY HOME SELF-CARE W/FATHER FOR TRANSPORT
== END 2022-04-26 10:30 | disposition home or self-care (01) | DRG 403 ==
LOC: HO.SSSA 06:34 → HO.S3 10:18
PROVIDERS: Nurse Practitioner; Physician Assistant; Admitting Provider Surgery; PCP Nurse Practitioner Family; Visit Provider Surgery
PROC: 0DB64Z3 Excision of Stomach, Percutaneous Endoscopic Approach, Vertical (ICD-10-PCS; CPT 43845; principal; 2022-04-25 07:30)
DX: E66.01 Morbid (severe) obesity due to excess calories (principal); Q43.3 Congenital malformations of intestinal fixation; E03.9 Hypothyroidism, unspecified; M54.9 Dorsalgia, unspecified; F33.0 Major depressive disorder, recurrent, mild; F41.9 Anxiety disorder, unspecified; Z68.38 Body mass index [BMI] 38.0-38.9, adult; Z20.822 Contact with and (suspected) exposure to COVID-19; Z87.442 Personal history of urinary calculi; Z79.3 Long term (current) use of hormonal contraceptives; Z79.890 Hormone replacement therapy; Z79.899 Other long term (current) drug therapy
CPT/HCPCS: 43775; 43659; 36415; 80048; 81025; 85014; 85018; 85025; 86850; 86900; 86901; 87635; 88307; 88342; A4649; C9088; J0131; J0690; J1100; J1170; J1200; J2250; J2405; J2765; J2795; J3010

== ENCOUNTER → 2022-08-01 16:07 | Outpatient (BNVA) | payer OTHER, SELFPAY | PROVIDERS: PCP Nurse Practitioner Family; Visit Provider Dietitian, Registered | DX: E66.3 Overweight (principal) | CPT/HCPCS: 97803 ==

== ENCOUNTER → 2022-08-05 10:40 | Outpatient (BNVA) | payer OTHER, SELFPAY | PROVIDERS: PCP Nurse Practitioner Family; Visit Provider Physician Assistant Surgical | DX: Z13.89 Encounter for screening for other disorder (principal) ==

== ENCOUNTER → 2022-08-07 16:25 | Outpatient (BNVA) | payer OTHER, SELFPAY | PROVIDERS: PCP Nurse Practitioner Family; Visit Provider Dietitian, Registered | DX: E66.9 Obesity, unspecified (principal) | CPT/HCPCS: 97803 ==

== ENCOUNTER → 2022-09-17 13:57 | Outpatient (BNVA) | payer OTHER, SELFPAY | PROVIDERS: PCP Nurse Practitioner Family; Visit Provider Dietitian, Registered | DX: E66.3 Overweight (principal) | CPT/HCPCS: 97803 ==

== ENCOUNTER → 2022-10-17 16:10 | Outpatient (BNVA) | payer OTHER, SELFPAY | PROVIDERS: PCP Nurse Practitioner Family; Visit Provider Dietitian, Registered | DX: Z98.84 Bariatric surgery status (principal); E66.3 Overweight; Z71.3 Dietary counseling and surveillance | CPT/HCPCS: 97803 ==

== ENCOUNTER 2023-03-03 12:28 | Outpatient (AMB) | payer OTHER, SELFPAY ==
--- NOTE | 2023-03-03 12:38 | A.OFFVIS_ITS ---
Intake VS Expanded 03/03/23 12:46 Height 5 ft 4 in Weight 136 lb 3.2 oz BMI 23.4 BP 116/73 Blood Pressure Location Rt brachial Blood Pressure Position Sitting Pulse 72 Pulse Source Pulse Oximeter Temp 97.9 F Temperature Source Tympanic Pulse Oximetry 98 Oxygen Delivery Method Room Air Body Fat 31.4 Body Fat Percentage 23.0 Free Fat Mass 104.8 Muscle Mass 99.4 Visceral Mass 2.0 Water Mass 75.2 BMR 1,420 Intake Visit Reasons: (OV) PO LSG 04/25/22 Decontaminator Required: No Allergies No Known Allergies Allergy (Verified 03/03/23 12:45) Medication List - Last Reconciled 03/03/23 by TERESA Fam ethynodiol diac-eth estradiol 1-50 mg-mcg ([place]) 1 tab PO DAILY HPI HPI Comments History of Present Illness Details 27 yo female s/p LSG on 04/25/22 presents for 10 month follow up Preop weight 11/08/21 260.8 pounds weight at 1 week PO appt 216# Last weight at 3 MO appt 169# weight at 4MO 158# weight today 136.2 pounds with a BMI of 23.4 Weight loss of ?124.6 pounds or 47.7% TBWL States she stopped her medications on her own, felt like she didn't need them anymore. She feels a little better off the meds. She has been off meds for about 6 months. She did not get labs as ordered. Not taking MVI or chacho + D She has had 4 episodes of epigastric pain over the last several months. Once she felt it was due to eating steak. Another time it was eating chicken but then she laid down shortly after. Meal plan: celebrate 4:1 2 scoops x 1, 25 gm Quest bar, 20 gm meal approx 4 forks protein and 4 forks veg Drinking 32-48 oz water, no soda or juice Exercise: stationary bike 350 chacho 2 x per week. [facility] Medical History Anxiety and depression Back pain BMI 38.0-38.9,adult History of kidney stones Hypothyroid Major depressive disorder, recurrent, mild Obesity Obesity (BMI 30-39.9) Vitamin A deficiency Vitamin B12 deficiency Surgical History History of lithotripsy Hx of laparoscopic partial gastrectomy Hx of oral surgery Family History Mother Obesity Father Diabetes Stroke Brother No problems noted. Brother No problems noted. Brother No problems noted. Social History Are you a primary neonatal critical care nurse to a significant other at home: No Do you presently have visiting nurse or other home services: No Alcohol intake: former Patient Tobacco Use Status: Never used Tobacco service: No Current occupational status: employed Review of Systems Const All systems reviewed & are unremarkable except as noted in HPI and below Physical Exam Const General: healthy appearing and no acute distress Resp Effort & Inspection: normal respiratory effort Auscultation: clear to auscultation bilaterally Cardio Rate: regular rate Rhythm: regular rhythm GI Auscultation: normal bowel sounds Extrem General: Yes normal to inspection Assessment & Plan Assessment & Plan (1) S/P laparoscopic sleeve gastrectomy: Code(s): Z98.84 - Bariatric surgery status Plan: Change meal plan to celebrate 4:1 2 scoops x 1 quest bar meal 6 forks/6 forks increase exercise check labs rtc for 1 year f/u (2) Abdominal pain: Code(s): R10.9 - Unspecified abdominal pain Plan: ? gallbladder related check Abd US Orders: Orders US abdomen limited Today R10.9 - Unspecified abdominal pain, Z98.84 - Bariatric surgery status Coding Level of Care Code Est Pt Level 4 (95292) Diagnoses S/P laparoscopic sleeve gastrectomy Z98.84 Abdominal pain R10.9 Time Spent (min) 40
[2023-03-03 12:46] VITALS: BP 116/73; PULSE 72; TEMP 36.6; O2SAT 98; BMI 23.4
== END 2023-03-03 13:34 | disposition home or self-care (01) ==
PROVIDERS: PCP Nurse Practitioner Family; Visit Provider Physician Assistant Surgical
DX: R10.9 Unspecified abdominal pain (principal); Z68.23 Body mass index [BMI] 23.0-23.9, adult; Z90.3 Acquired absence of stomach [part of]; Z98.84 Bariatric surgery status
CPT/HCPCS: 99214

== ENCOUNTER → 2023-03-03 12:28 | Outpatient (BNVA) | payer OTHER, SELFPAY | PROVIDERS: PCP Nurse Practitioner Family; Visit Provider Physician Assistant Surgical ==

== ENCOUNTER 2023-03-08 08:27 | Outpatient (REF) | payer OTHER, SELFPAY ==
[2023-03-08 08:49] LABS: MANUAL DIFF FLAG NO
[2023-03-08 09:04] LABS: Basophils Percent Auto 0.8 % (0-2); Eosinophils Absolute Auto 0.1 X10*3/uL (0.0-0.4); Eosinophils Percent Auto 2.6 % (0-4); Hematocrit 40.1 % (37.0-47.0); Hemoglobin 13.2 g/dl (12.0-16.0); Imm Gran Abs Auto 0.01 X10*3/uL (0.00-0.03); Imm Gran Pct Auto 0.2 % (0.0-0.4); Lymphocytes Absolute Auto 2.2 X10*3/uL (1.2-4.9); Lymphocytes Percent Auto 42.7 % (20-40); Mean Corpuscular HGB Conc 32.9 g/dl (31.0-35.0); Mean Corpuscular Hemoglobin 30.8 pg (27.0-33.0); Mean Corpuscular Volume 93.5 fL (80.0-98.0); Mean Platelet Volume 11.6 fL (9.4-12.3); Monocytes Absolute Auto 0.3 X10*3/uL (0.1-1.2); Monocytes Percent Auto 6.5 % (2-11); Neutrophils Absolute Auto 2.4 x10*3/uL (2.0-8.3); Neutrophils Percent Auto 47.2 % (45-73); Platelet Count 173 X10*3/uL (160-400); Red Blood Count 4.29 X10*6/uL (4.20-5.50); Red Cell Distribution Width 12.3 % (11.0-16.0); White Blood Count 5.1 X10*3/uL (4.8-10.8)
[2023-03-08 09:11] LABS: Estimated Average Glucose 80 mg/dL; Hemoglobin A1c % 4.4 %
[2023-03-08 09:32] LABS: Albumin Level 3.8 g/dL (3.5-5.0); Alkaline Phosphatase 65 U/L (39-117); Anion Gap 13 (12-20); Bilirubin Total 0.6 mg/dL (0.0-1.0); Calcium 9.1 mg/dL (8.4-10.2); Carbon Dioxide 25 mmol/L (22-29); Chloride 109 mmol/L (96-108); Glucose Random 74 mg/dL (60-115); Potassium 3.6 mmol/L (3.3-5.1); Sodium 143 mmol/L (135-145); Total Protein 6.8 g/dL (6.5-8.0); Triglycerides 79 mg/dL
[2023-03-08 09:40] LABS: Alanine Aminotransferase 14 U/L (0-31); Aspartate Amino Transferase 14 U/L (5-31); Blood Urea Nitrogen 11 mg/dL (9-16); C Reactive Protein 0.21 mg/dL (< or = 0.50); Cholesterol 162 mg/dL; Estimated Glomerular Filt Rate > 60; HDL Cholesterol 53 mg/dL; Iron 111 mcg/dL (30-160); LDL Cholesterol Calculated 94 mg/dl; Percent Iron Saturation 41 % (15-50); Total Iron Binding Capacity 273 mcg/dL (228-428); Unsaturated Iron Binding 162 ug/dL
[2023-03-08 09:52] LABS: Ferritin 59 ng/mL (10-122); TSH reflex Free T4 5.64 uIU/mL (0.32-4.0); Vitamin D 25-OH Total 37.9 ng/mL (>30)
[2023-03-08 10:16] LABS: Folate 4.5 ng/mL (> or = 4.0); Vitamin B12 288 pg/mL (200-900)
[2023-03-08 10:49] LABS: Free T4 (Free Thyroxine) 0.71 ng/dL (0.71-1.85); Insulin 3 uU/mL (2-29)
[2023-03-10 13:48] LABS: Calcium (PTHI) 8.9 mg/dL (8.6-10.2); PTHI 46 pg/mL (16-77)
[2023-03-12 02:43] LABS: Zinc 78 mcg/dL (60-130)
[2023-03-13 04:53] LABS: Vitamin A 40 mcg/dL (38-98)
[2023-03-13 14:29] LABS: Vitamin B1 8 nmol/L (8-30)
== END 2023-03-08 08:28 | disposition home or self-care (01) ==
LOC: HO.LAB 08:27
PROVIDERS: PCP Nurse Practitioner Family; Visit Provider Physician Assistant Surgical
DX: K91.2 Postsurgical malabsorption, not elsewhere classified (principal); Z98.84 Bariatric surgery status
CPT/HCPCS: 36415; 80053; 80061; 82306; 82607; 82728; 82746; 83036; 83525; 83540; 83970; 84425; 84439; 84443; 84590; 84630; 85025; 86140

== ENCOUNTER 2023-05-15 14:00 | Outpatient (AMB) | payer OTHER, SELFPAY ==
--- NOTE | 2023-05-15 14:04 | A.OFFVIS_ITS ---
Intake Intake Visit Reasons: (OV) PO LSG 04/25/22 Allergies No Known Allergies Allergy (Verified 03/03/23 12:45) PFSH Medical History Anxiety and depression Back pain BMI 38.0-38.9,adult History of kidney stones Hypothyroid Major depressive disorder, recurrent, mild Obesity Obesity (BMI 30-39.9) Vitamin A deficiency Vitamin B12 deficiency Surgical History History of lithotripsy Hx of laparoscopic partial gastrectomy Hx of oral surgery Family History Mother Obesity Father Diabetes Stroke Brother No problems noted. Brother No problems noted. Brother No problems noted. Social History Are you a primary client care representative to a significant other at home: No Do you presently have visiting nurse or other home services: No Alcohol intake: former Patient Tobacco Use Status: Never used Tobacco service: No Current occupational status: employed Coding
--- NOTE | 2023-05-15 14:11 | A.OFFVIS_ITS ---
Intake VS Expanded 05/15/23 14:15 BP 117/58 L Blood Pressure Location Rt brachial Blood Pressure Position Sitting Pulse 93 Pulse Source Pulse Oximeter Temp 97.3 F Temperature Source Temporal Artery Scan Pulse Oximetry 97 Oxygen Delivery Method Room Air Height 5 ft 4 in Weight 129 lb 12.8 oz BMI 22.3 Body Fat % 18.2 Body Fat Mass 23.6 Fat Free Mass 106.0 Visceral Fat Rating 1.0 Body Water % 58.7 Body Water Mass 76.0 Muscle Mass/Score 100.8 Basal Metabolic Rate/Score 1,423 Intake Visit Reasons: (OV) PO LSG 04/25/22 Patrol Officer Required: No Allergies No Known Allergies Allergy (Verified 05/15/23 14:13) Medication List - Last Reconciled 05/15/23 by TERESA Fam levothyroxine 50 mcg PO DAILY HPI HPI Comments History of Present Illness Details 27 yo female s/p LSG on 04/25/22 presents for 1 year follow up. Preop weight 11/08/21 260.8 pounds. Weight today is 129.8 pounds with a BMI of 22.3. Weight loss of 131 pounds or 50.2% TBWL She states she did half to undergo a laparoscopic cholecystectomy due to acute cholecystitis in March 2023, performed at [facility]. She states that since then, she has been doing very well and is feeling much better. She has noticed a probelm with the excess skin of her abdomen. She has noticed a rash that has been itchy sometimes. She has treated this with diligent hygiene and keeping the area dry. She has not had to get a Rx for it yet. She needs to wear tighter fitting clothing to prevent the extra skin from rubbing or bouncing around with ADLs. Meal plan: 830 am: Celebrate 4 in 1 2 scoops in uns weetened almond milk noon: applesauce or thai yogurt or pure protein bar or cheese wrap w chicken 3pm: another shake 530pm: 1/2 chicken breast w broccoli Drinkin oz water Exercise: none stationary bike and bands at her home. Any post op complications: none JAMESON: never DM: never HTN: never Hyperlipidemia: never GERD:?0-5 scale ??0 = no symptoms ??1 = symptoms noticeable but not bothersome 2 =symptoms bothersome but not daily ? 3 = symptoms bothersome and daily 4 = symptoms affect daily activities 5 = symptoms are incapacitating, unable to do daily activities ? How bad is the heartburn: 0 ? Heartburn while lying down: 0 ? Heartburn when standing up: 0 ? Heartburn after meals: 0 ? Does heartburn change your diet: 0 ? Does heartburn wake you up from sleep: 0 ? Do you have difficulty swallowin ? Do you have pain with swallowin ? If you take medicine for your reflux, does this affect your daily life: 0 Satisfaction with present condition - satisfied or not satisfied: satisfied [facility], [facility] Medical History Back pain BMI 38.0-38.9,adult Obesity Hypothyroid Anxiety and depression Obesity (BMI 30-39.9) Vitamin B12 deficiency Vitamin A deficiency Major depressive disorder, recurrent, mild History of kidney stones Surgical History Hx of cholecystectomy Hx of laparoscopic partial gastrectomy History of lithotripsy Hx of oral surgery Family History Mother Obesity Father Diabetes Stroke Brother No problems noted. Brother No problems noted. Brother No problems noted. Social History Are you a primary primary care md to a significant other at home: No Do you presently have visiting nurse or other home services: No Alcohol intake: former Patient Tobacco Use Status: Never used Tobacco service: No Current occupational status: employed Review of Systems Const All systems reviewed & are unremarkable except as noted in HPI and below Physical Exam Const General: healthy appearing and no acute distress Resp Effort & Inspection: normal respiratory effort Auscultation: clear to auscultation bilaterally Cardio Rate: regular rate Rhythm: regular rhythm GI Auscultation: normal bowel sounds Extrem General: Yes normal to inspection Assessment & Plan Assessment & Plan (1) S/P laparoscopic sleeve gastrectomy: Code(s): Z98.84 - Bariatric surgery status Plan: Overall, the patient is very happy with her progress. She was encouraged to contact the office should she develop any rash due to the excess skin. Supplemental to previously ordered labs have been ordered. We will have her return to the office in 6 weeks. Orders: Orders Vitamin D 25-OH Total Today Z98.84 - Bariatric surgery status Zinc Today Z98.84 - Bariatric surgery status Ferritin Today Z98.84 - Bariatric surgery status PTHI Today Z98.84 - Bariatric surgery status Vitamin A Today Z98.84 - Bariatric surgery status IRON PROFILE Today Z98.84 - Bariatric surgery status Vitamin B1 Today Z98.84 - Bariatric surgery status Vitamin B12 and Folate Today Z98.84 - Bariatric surgery status Coding Level of Care Code Est Pt Level 4 (74409) Diagnoses S/P laparoscopic sleeve gastrectomy Z98.84 Time Spent (min) 40
[2023-05-15 14:15] VITALS: BP 117/58; PULSE 93; TEMP 36.3; O2SAT 97; BMI 22.3
== END 2023-05-15 15:15 | disposition home or self-care (01) ==
PROVIDERS: PCP Nurse Practitioner Family; Visit Provider Physician Assistant Surgical
DX: L98.7 Excessive and redundant skin and subcutaneous tissue (principal); Z68.22 Body mass index [BMI] 22.0-22.9, adult; Z90.3 Acquired absence of stomach [part of]; Z98.84 Bariatric surgery status
CPT/HCPCS: 99214

== ENCOUNTER → 2023-05-15 14:00 | Outpatient (BNVA) | payer OTHER, SELFPAY | PROVIDERS: PCP Nurse Practitioner Family; Visit Provider Physician Assistant | DX: Z98.84 Bariatric surgery status (principal); R10.9 Unspecified abdominal pain ==